=== PATIENT | female | born 1935 | race Caucasian/White ===

== ENCOUNTER 2020-09-10 20:17 | Emergency (ER) | payer OTHER ==
--- OUTSIDE RECORDS SUMMARY | 2020-09-10 20:19 | XMS REPORT | Clinical Summary ---
:1935 Author Organization [facility] Address [address] [place] [address] Care Team Providers Name Role Phone MD Remigio Primary Care Provider Allergies Active Allergy Reactions Severity Noted Date Comments Ciprofloxacin High 04/03/2016 CIPROFLOXACIN: uncontrollable diarrhea and vo miting. pain on left side of ch est. tremors. - Converted from [facility] Egg 10/06/2019 Esomeprazole Magnesium Low 08/30/2010 ESOME PRAZOLE MAGNESIUM: rash - Converted from [facility] Fluconazole 10/21/2017 Diarrhea, sever e headaches Metoclopramide Hcl High 02/19/2016 METOCLOPR AMIDE HCL: severe weakness; vomit ing and diarrhea - Converted fro m [facility] Tramadol Hcl Low 06/27/2009 TRAMADOL HCL: S ALTON EFFECTS PER PATIENT - Conve rted from [facility] Medications Medication Sig Dispensed Refills Start Date End Date Status pantoprazole Take 40 mg by 0 Act derek (PROTONIX) 40 MG mouth daily. tablet lansoprazole Take 30 mg by 1 09/18/2019 Ac tive (PREVACID) 30 MG mouth 2 (two) capsule times daily. sertraline (ZOLOFT) 50 Take 50 mg by 2 09/18/2019 Active MG tablet mouth daily. donepezil (ARICEPT) 5 Take 5 mg by 3 09/18/2019 Active MG tablet mouth daily. nitrofurantoin, Take 1 capsule 14 capsule 0 10/06/2019 020 macrocrystal-monohydra (100 mg total) te, (MACROBID) 100 MG by mouth 2 capsule (two) times daily for 7 days. phenazopyridine Take 1 tablet 4 tablet 0 10/06/2019 0 (PYRIDIUM) 200 MG (200 mg total) tablet by mouth 2 (two) times daily for 2 days. phenazopyridine Take 1 tablet 9 tablet 0 10/20/2019 0 (PYRIDIUM) 200 MG (200 mg total) tablet by mouth 3 (three) times daily for 3 days. Active Problems No known active problems Encounters Date Type Specialty Care Team Description 10/20/2019 Emergency Emergency Medicine Zohaib Dozier, Dysuria (Primary Dx) 10/06/2019 Emergency Emergency Medicine Sung Ramirez MD Dysuria (Primary Dx) after 09/10/2019 Social History Tobacco Use Types Packs/Day Years Used Date Former Smoker Smokeless Tobacco: Never Used Alcohol Use Drinks/Week oz/Week Comments No Alcohol Habits Answer Date Recorded How often do you have a drink containing alcohol? Never 10/06/2019 How many drinks containing alcohol do you have on a typical Not asked day when you are drinking? How often do you have six or more drinks on one occasion? No t asked Sex Assigned at Date Recorded Not on file Last Filed Vital Signs Vital Sign Reading Time Taken Comments Blood Pressure 146/64 10/20/2019 4:35 PM EMPLOYMENT COORDINATOR Pulse 73 10/20/2019 4:35 PM EMPLOYMENT COORDINATOR Temperature 36.7 C (98.1 F) 10/20/2019 4:35 PM EMPLOYMENT COORDINATOR Respiratory Rate 18 10/20/2019 3:57 PM EMPLOYMENT COORDINATOR Oxygen Saturation 96% 10/20/2019 4:35 PM EMPLOYMENT COORDINATOR Inhaled Oxygen Concentration - - Weight 54.4 kg (120 lb) 10/20/2019 3:57 PM EMPLOYMENT COORDINATOR Height 165.1 cm (5' 5") 10/20/2019 3:57 PM EMPLOYMENT COORDINATOR Body Mass Index 19.97 10/20/2019 3:57 PM EMPLOYMENT COORDINATOR Plan of Treatment Health Maintenance Due Date Last Done Comments MEDICARE ANNUAL WELLNESS (YEAR 2 or 06/16/2003 FIRST YEAR if no IPPE) INFLUENZA VACCINE (#1) 2020 07/16/2017, 06/16/2015, 06/24/2014 PNEUMOCOCCAL 65+ YRS Completed 10/08/2017, 03/20/2006 Procedures Procedure Name Priority Date/Time Associated Comments Diagnosis URINALYSIS - Routine 10/20/2019 4:03 PM [facility] EMPLOYMENT COORDINATOR URINE CULTURE Routine 10/06/2019 3:41 PM Results for this EMPLOYMENT COORDINATOR procedure are i n the results section. URINALYSIS - Routine 10/06/2019 3:10 PM [facility] EMPLOYMENT COORDINATOR after 09/10/2019 Results URINALYSIS - [facility] (10/20/2019 4:03 PM EMPLOYMENT COORDINATOR)Only the most recent of2 resultswithin the time period is included. Specimen Urine Narrative Performed At This result has an attachment that is no t available. Performing Organization Address City/[facility]/Zipcode Phone Number [facility] [address] [place] [address] HOSPITAL Urine culture (10/06/2019 3:41 PM EMPLOYMENT COORDINATOR) Pathologist Sig nature Result 70-79,000 col/mL skin [facility] Y anukr Specimen Urine - Urine (substance) Performing Organization Address City/[facility]/Zipcode Phone Number [facility] [address] [place], [place] [address] after 09/10/2019 Advance Directives For more information, please contact: [phone] Type Date Recorded Patient Sessions Clerk Explanati on Advance Directives 10/06/2019 12:00 AM 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
--- OUTSIDE RECORDS SUMMARY | 2020-09-10 20:19 | XMS REPORT | Clinical Summary ---
:1935 Author Organization [facility] Address [address] [place] [address] Care Team Providers Name Role Phone Rich Flood MD Primary Care Provider Allergies Active Allergy Reactions Severity Noted Date Comments Ciprofloxacin Unknown Reaction High 04/03/2016 CIPROFLOXA DELGADO: uncontrollable diarrhea and vomiting. p ain on left side of ch est. tremors. - Conv erted from [facility] CIPROFLOXACIN: uncontrollable diarrhea and vomiting. p ain on left side of ch est. tremors. - Conv erted from [facility] Egg Unknown Reaction 04/19/2018 Nutritional Other (See 10/04/2019 Intolerance to Eggs Supplement-Fiber Comments) Esomeprazole Magnesium Unknown Reaction Low 08/30/2010 E SOMEPRAZOLE MAGNESIUM: rash - Converte d from [facility] ESOMEPRAZOLE MA GNESIUM: rash - Converte d from [facility] Fluconazole Unknown Reaction 10/21/2017 Diarrhea, s evere headaches Diarrhea, sever e headaches Hydrocodone Other (See 10/04/2019 Drunk feeling Comments) Metoclopramide Hcl Unknown Reaction High 02/19/2016 METOC LOPRAMIDE HCL: severe weakness ; vomiting and di arrhea - Converted from [facility] METOCLOPRAMIDE HCL: severe weakness ; vomiting and di arrhea - Converted from [facility] Other Unknown Reaction High 03/20/2006 NUTRITIONAL SUPPLEMENTS: GI problems - Conv erted from [facility] Tramadol Hcl Unknown Reaction Low 06/27/2009 TRAMADOL HC L: SIDE EFFECTS PER PAT IENT - Converted from [facility] TRAMADOL HCL: S ALTON EFFECTS PER PAT IENT - Converted from [facility] Medications Medication Sig Dispensed Refills Start Date End Date Status lansoprazole daily. 0 09/18/2019 Active (PREVACID) 30 MG capsule sertraline (ZOLOFT) daily. 0 09/18/2019 Active 50 MG tablet donepezil (ARICEPT) 5 daily. 0 09/18/2019 Active MG tablet phenazopyridine TAKE 1 0 10/20/2019 Act derek (PYRIDIUM) 200 MG TABLET BY tablet MOUTH 3 TIMES DAILY FOR 3 DAYS. pantoprazole Take 40 mg 0 11/03/2019 Disco ntinued (PROTONIX) 40 MG EC by mouth. tablet Active Problems Problem Noted Date Dementia with behavioral disturbance 10/04/2019 Encounters Date Type Specialty Care Team Description 11/24/2019 Telephone Neurology Sea Cash MD 11/03/2019 Office Visit Neurology Sea Cash Dement ia with behavioral MD disturbance, unspecified Michelle Butler PA dementia type (HCC) (Primary Dx) 11/03/2019 Telephone Neurology Sea Cash MD 10/27/2019 Telephone Neurology Sea Cash MD 10/25/2019 Office Visit Neurology Sea Cash Dement ia with behavioral MD disturbance, un specified dementia type ( HCC) (Primary Dx) 10/18/2019 Telephone Neurology Jamilah Olmedo 10/04/2019 Office Visit Neurology Sea Cash Dement ia with behavioral disturbance, unspecified dementia type (HCC) (Primary Dx); MD Conrad north ; Disorder of iro n metabolism, unspecified ; Atherosclerotic heart disease of [place] coronary artery without angina pectoris ; Abnormal result s of thyroid function studies ; Other specified disorders of thyroid ; Mild protein-ca dasia malnutrition (HCC) 09/14/2019 Telephone Neurology Sea Cash MD after 09/10/2019 Medical History Medical History Date Comments Memory loss Arthritis Stroke (HCC) TIA (transient ischemic attack) Family History Medical History Relation Name Comments No Known Problems Father No Known Problems Mother Relation Name Status Comments Father Mother Social History Tobacco Use Types Packs/Day Years Used Date Former Smoker Smokeless Tobacco: Never Used Alcohol Use Drinks/Week oz/Week Comments Never Alcohol Habits Answer Date Recorded How often do you have a drink containing alcohol? Never 10/04/2019 How many drinks containing alcohol do you have on a typical Not asked day when you are drinking? How often do you have six or more drinks on one occasion? No t asked Sex Assigned at Date Recorded Not on file Last Filed Vital Signs Vital Sign Reading Time Taken Comments Blood Pressure 124/60 11/03/2019 2:27 PM LICENSED PRACTICAL NURSE Pulse 71 11/03/2019 2:27 PM LICENSED PRACTICAL NURSE Temperature - - Respiratory Rate - - Oxygen Saturation - - Inhaled Oxygen Concentration - - Weight 58.5 kg (129 lb) 11/03/2019 2:27 PM LICENSED PRACTICAL NURSE Height 160 cm (5' 3") 11/03/2019 2:27 PM LICENSED PRACTICAL NURSE Body Mass Index 22.85 11/03/2019 2:27 PM LICENSED PRACTICAL NURSE Plan of Treatment Health Maintenance Due Date Last Done Comments COVID-19 VACCINE (#1) 1951 SHINGLES VACCINES (#1) 1987 INFLUENZA VACCINE 04/15/2020 07/23/2013, 06/03/2012, 2010 65+ PNEUMOCOCCAL VACCINE Completed 10/08/2017, 03/20/2006 Results Not on fileafter 09/10/2019 Insurance Payer Benefit Plan / Subscriber ID Effective Dates Phone Addre ss Type Group MEDICARE MEDICARE PART A [id number] 2002-Present [place] Medicare [place] B Advance Directives For more information, please contact: [phone] Type Date Recorded 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
--- OUTSIDE RECORDS SUMMARY | 2020-09-10 20:22 | XMS REPORT | Continuity of Care Document ---
:1935 Author Organization [facility] t Address [address] [place] [address] Care Team Providers Name Role Phone Rich Flood MD Primary Care Physician Sea Cash MD Attending Clinician Carrie KUMAR Attending Clinician Robin Dozier MD Attending Clinician Honorio Attending Clinician Unavailable KRISTIAN GA Attending Clinician Unavailable Kristian Ga MD Attending Clinician Payers Payer Name Policy Type Policy Effective Date Expiration Date Sour ce Number MEDICAREMEDICARE PART [id number] Candido Stevens AND 00:00:00 Taoist DybkauotIY9980/09/2001 [place] [id number] ELIZABETH S t Liannapablo [id number] 2001 00:00:00 - M edical -Present[facility]are Center Problems Condition Condition Condition Status Onset Resolution Last Treating Co mments Source Name Details Category Date Date Treatment Clinician Date Dementia Dementia Disease Active [place] with 20 [facility] behavioral behavioral 00:00: st disturbanc disturbanc 00 e e Allergies, Adverse Reactions, Alerts Allergy Allergy Status Severity Reaction(s) Onset Inactive Treating Comm ents Source Name Type Date Date Clinician egg FA Active U [facility] 3-12 [place] 00:00: Healthc 00 are [place] Egg Propensi Active [facility] 10[facility]06 [facility] - adverse 00:00: Medical reaction 00 Center s Nutritio Propensi Active Other (See Intoleran [facility] ty to Comments) 1-20 ce to Methodi Suppleme adverse 00:00: Eggs st nt-Fiber reaction 00 s to drug Hydrocod Propensi Active Other (See Drunk [place] one ty to Comments) 1-20 feeling Method i adverse 00:00: st reaction 00 s to drug egg FA Active U 2018- [facility] 2-30 [place] 00:00: [facility] egg FA Active U 2018-0 [facility] 8[facility]11 [place] 00:00: [facility] hydrocod DA Active [place] 2019-0 [facility] 2-11 [place] 00:00: [facility] egg DA Active [place] 2018- [facility] 2[facility] [place] 00:00: [facility] egg FA Active [place] 2018-0 [facility] 2[facility] [place] 00:00: [facility] hydrocod DA Active [place] 2017-0 [facility] one 8-05 [place] 00:00: [facility] egg DA Active [place] 2017- [facility] 8-05 [place] 00:00: [facility] Egg Propensi Active Unknown [place] ty to Reaction 8-05 [facility]i adverse 00:00: st reaction 00 s to drug Fluconaz Propensi Active Unknown Diarrhea, [place] ty to Reaction 2-06 severe Methodi adverse 00:00: headaches st reaction 00 Diarrhea, s to severe drug headaches Fluconaz Propensi Active 2018- Diarrhea[facility] ty to 2-06 severe [facility] - adverse 00:00: headaches Medica l reaction 00 Center s Ciproflo Propensi Active Unknown CIPROFLOX [place] xacin ty to Reaction 7-20 ACIN: Methodi adverse 00:00: uncontrol st reaction 00 lable s to diarrhea drug and vomiting. pain on left side of chest. tremors. - Converted from Centricit yCIPROFLO XACIN: uncontrol lable diarrhea and vomiting. pain on left side of chest. tremors. - Converted from Centricit y Ciproflo Propensi Active Severe 2015- CIPROFLOX [facility] xacin ty to 7-20 ACIN: [facility] - adverse 00:00: uncontrol Medica l reaction 00 lable Center s diarrhea and vomiting. pain on left side of chest. tremors. - Converted from Centricit y Metoclop Propensi Active Unknown METOCLOPR [place] ramide ty to Reaction 6-06 AMIDE Methodi Hcl adverse 00:00: HCL: st reaction 00 severe s to weakness; drug vomiting and diarrhea - Converted from Centricit yMETOCLOP RAMIDE HCL: severe weakness; vomiting and diarrhea - Converted from Centricit y Metoclop Propensi Active Severe 2015- METOCLOPR [facility] ramide ty to 6-06 AMIDE [facility] - Hcl adverse 00:00: HCL: Medical reaction 00 severe Center s weakness; vomiting and diarrhea - Converted from Centricit y Esomepra Propensi Active Unknown 2009-09 ESOMEPRAZ [place] z[place] ty to Reaction 2-16 OLE Methodi Magnesiu adverse 00:00: MAGNESIUM st m reaction 00 : rash - s to Converted drug from Centricit yESOMEPRA ZOLE MAGNESIUM : rash - Converted from Centricit y Esomepra Propensi Active Mild 2009-[address] zole ty to 2-16 OLE [facility] - Magnesiu adverse 00:00: MAGNESIUM Medi betty m reaction 00 : rash - Center s Converted from Centricit y Tramadol Propensi Active Unknown 2008-09 TRAMADOL [facility] Hcl ty to Reaction 0-13 HCL: SIDE Metho di adverse 00:00: EFFECTS st reaction 00 PER s to PATIENT - drug Converted from Centricit yTRAMADOL HCL: SIDE EFFECTS PER PATIENT - Converted from Centricit y Tramadol Propensi Active Mild 2008-[address] [facility] ty to 0-13 HCL: SIDE [facility] - adverse 00:00: EFFECTS Medical reaction 00 PER Center s PATIENT - Converted from Centricit y Other Propensi Active Unknown 2005- NUTRITION [place] to Reaction 7-06 [place] Methodi adverse 00:00: SUPPLEMEN st reaction 00 TS: GI s problems - Converted from Centricit y Family History Family Member Diagnosis Comments Start Date Stop Date Source Natural father No Known Problems Rodri ston Taoist Natural mother No Known Problems Rodri ston Taoist Social History Social Habit Start Date Stop Date Quantity Comments Source History SDOH [facility] - [facility] Std Dr[facility] History SDOH [facility] - Alcohol Binge Medical Wilfredo ter Sex Assigned At [facility] Tobacco use and 2019-10-20 2019-10-20 Never used [facility] - exposure 00:00:00 00:00:00 [facility] Alcohol intake 2019-10-20 2019-10-[address]00 non-drinker of Medical Ce nter alcohol (finding) History SDOH 2019-10-06 2019-10-[address] [facility] - Alcohol Frequency 00:00:00 00:00:00 [facility] Smoking Status Start Date Stop Date Source Former smoker 2019-10-20 00:00:00 2019-10-20 00:00:00 [facility] Medications Ordered Filled Start Stop Current Ordering Indication Dosage Frequency Signature Comments Components Source Medication Medication Date Date Medication? Clinician (SIG) Name Name pantoprazol 2020- No 40mg Take 40 mg [place] e 11-03 by mouth. [facility]i (PROTONIX) 15:03: 00:00 st 40 MG EC 18 :00 tablet phenazopyri Yes TAKE 1 [place] 2-05 TABLET BY Methodi (PYRIDIUM) 00:00: MOUTH 3 st 200 MG 00 TIMES tablet DAILY FOR 3 DAYS. phenazopyri 2019- No 200mg [id number] Take [address] dine 2-05 -08 [id number] tablet [facility] - (PYRIDIUM) 00:00: 23:59 3D (200 mg Med ical 200 MG 00 :00 total) by Center tablet mouth 3 (three) times daily for 3 days. pantoprazol 2020-0 Yes 40mg QD Take [address] e -22 by mouth [facility] - (PROTONIX) 14:26: daily. Medic al 40 MG 59 Center tablet nitrofurant 2020-0 2020- No 100mg Q.5D Take [address] oin, 10-06 capsule [facility] - macrocrysta 00:00: 23:59 (100 mg Me dical l-monohydra 00 :00 total) by [facility] ter te, mouth 2 (MACROBID) (two) 100 MG times capsule daily for 7 days. phenazopyri 2020-0 2020- No 200mg Q.5D Take [address] dine 10-06 tablet [facility] - (PYRIDIUM) 00:00: 23:59 (200 mg Med ical 200 MG 00 :00 total) by Center tablet mouth 2 (two) times daily for 2 days. lansoprazol 2020-0 Yes QD daily. [place] 1-04 [facility] (PREVACID) 00:00: st 30 MG 00 capsule sertraline 2020-0 Yes QD daily. [place] (ZOLOFT) 50 1-04 Methodi MG tablet 00:00: st 00 donepezil 2020-0 Yes QD daily. [place] n (ARICEPT) 5 1-04 Methodi MG tablet 00:00: st 00 lansoprazol 2020-0 Yes 30mg Q.5D Take [address] e 1-04 by mouth 2 [facility] - (PREVACID) 00:00: (two) Medica l 30 MG 00 times Center capsule daily. sertraline 2020-0 Yes 50mg QD Take [address] (ZOLOFT) 50 1-04 by mouth Luke s - MG tablet 00:00: daily. Medica l 00 Center donepezil 2020-0 Yes 5mg QD Take [address] (ARICEPT) 5 1-04 by mouth Luke s - MG tablet 00:00: daily. Medica l 00 Center Vital Signs Vital Name Observation Time Observation Value Comments Source Systolic blood 2019-11-03 14:27:00 124 mm[Hg] [place] pressure Diastolic blood 2019-11-03 14:27:00 60 mm[Hg] [place] [facility] pressure Heart rate 2019-11-03 14:27:00 71 /min [place] [facility] Body height 2019-11-03 14:27:00 160 cm [place] [facility] Body weight 2019-11-03 14:27:00 58.514 kg [place] [facility] BMI 2019-11-03 14:27:00 22.85 kg/m2 [place] [facility] Systolic blood 2019-10-20 16:35:00 146 mm[Hg] [facility] Diastolic blood 2019-10-20 16:35:00 64 mm[Hg] [facility] Heart rate 2019-10-20 16:35:00 73 /min [facility] Body temperature 2019-10-20 16:35:00 36.72 [facility] Oxygen saturation in 2019-10-20 16:35:00 96 /min [facility] Arterial blood by Medical Ce nter Pulse oximetry Respiratory rate 2019-10-20 15:57:00 18 /min [facility] Body height 2019-10-20 15:57:00 165.1 cm [facility] Body weight 2019-10-20 15:57:00 54.432 kg [facility] BMI 2019-10-20 15:57:00 19.97 kg/m2 [facility] Procedures Procedure Date / Time Performed Performing Clinician [facility] e URINALYSIS [facility] 2019-10-20 16:03:00 Zohaib Dozier [facility] URINE CULTURE 2019-10-06 15:41:00 Sung Ga [facility] URINALYSIS [facility] 2019-10-06 15:10:00 Sung Ga I [facility] Plan of Care Planned Activity Planned Date Details Comments Source Future Scheduled 2020-05-[address] [facility] Test 00:00:00 (#1) [code = [facility] INFLUENZA VACCINE (#1)] Future Scheduled 2020-04-15 INFLUENZA VACCINE [place] [facility] Test 00:00:00 [code = INFLUENZA VACCINE] Future Scheduled 2003-06-[address] [facility] - Test 00:00:00 WELLNESS (YEAR 2 or Medical Center FIRST YEAR if no IPPE) [code = MEDICARE ANNUAL WELLNESS (YEAR 2 or FIRST YEAR if no IPPE)] Future Scheduled 1987 SHINGLES VACCINES [place] [facility] Test 00:00:00 (#1) [code = SHINGLES VACCINES (#1)] Future Scheduled 1953 COVID-19 VACCINE [place] [facility] Test 00:00:00 (#1) [code = COVID-19 VACCINE (#1)] Results Test Description Test Time Test Comments Results Result Comments Source COMPREHENSIVE METABOLIC PANEL 2019-12-06 05:17:00 Test Item Value Reference Range Interpretation Comme nts SODIUM (test code = NA) 141.0 mmol/L 133-144 N POTASSIUM (test code = K) 3.7 mmol/L 3.5-5.1 N CHLORIDE (test code = CL) 111 mmol/L 95-105 H CARBON DIOXIDE (test code 26 mmol/L 21-32 N = CO2) ANION GAP (test code = 4.0 GAP calc 4.0-15.0 N GAP) GLUCOSE (test code = GLU) 96 MG/DL 70-110 N BLOOD UREA NITROGEN (test 16 MG/DL 7-18 N code = BUN) GLOMERULAR FILTRATION RATE 73 estGFR >60 T he estimated glomerular (test code = GFR) filtration rate is computed usingp atient race, age, sex, and serum creatinine. If any of theneeded data elements are missing the Laboratory can notcompute an estimation of t he glomerular filt ration rate.The GFR va lue units = ml/min/1.73 met er squared. EstimatedGFR v alues above 60 should be in terpreted as >60, not ane xact number.--- DRUG DOSAGE ALERT --- Drug dosage adjustments uti lize different calculationpara meters. CREATININE (test code = 0.76 MG/DL 0.55-1.30 N Resu lts may be depressed CREAT) if patient is takingN-Acetylc ysteine (NAC) and Metam izole (Dipyrone). TOTAL PROTEIN (test code = 6.4 G/DL 6.4-8.2 N PROT) ALBUMIN (test code = ALB) 3.3 G/DL 3.4-5.0 L ALBUMIN/GLOBULIN RATIO 1.1 RATIO 1.2-2.2 L (test code = A/G) CALCIUM (test code = CA) 7.9 MG/DL 8.5-10.1 L BILIRUBIN TOTAL (test code 0.19 MG/DL 0.00-1.00 N = BILT) BILIRUBIN DIRECT (test < 0.10 MG/DL 0.00-0.30 N code = BILD) BILIRUBIN INDIRECT (test 0.19 MG/DL 0.2-1.3 L code = BILIND) SGOT/AST (test code = AST) 22 Unit/L 15-37 N SGPT/ALT (test code = ALT) 14 Unit/L 12-78 N ALKALINE PHOSPHATASE TOTAL 106 Unit/L 45-117 N (test code = ALKP) INDEX HEMOLYSIS (test code 1 NORMAL <10 MG 1 NORMAL = HEMINDEX) Index/DL INDEX ICTERIC (test code = 1 NORMAL <2 MG 1 NORMAL ICTINDEX) Index/DL INDEX LIPEMIA (test code = 1 NORMAL <50 MG 1 NORMAL LIPINDEX) Index/DL [id number] 05:17:00 Test Item Value Reference Range Interpretation Comments MAGNESIUM (test code = MAG) 2.2 MG/DL 1.6-2.6 N COMPREHENSIVE METABOLIC [id number] 05:15:00 Test Item Value Reference Range Interpretation Comments SODIUM (test code = 141.0 mmol/L 133-144 N NA) POTASSIUM (test code 3.7 mmol/L 3.5-5.1 N = K) CHLORIDE (test code 111 mmol/L 95-105 H = CL) CARBON DIOXIDE (test 26 mmol/L 21-32 N code = CO2) ANION GAP (test code 4.0 GAP calc 4.0-15.0 N = GAP) GLUCOSE (test code = 96 MG/DL 70-110 N GLU) BLOOD UREA NITROGEN 16 MG/DL 7-18 N (test code = BUN) GLOMERULAR 73 estGFR >60 The estimated FILTRATION RATE glomerular (test code = GFR) filtration rate is computed usingpatient ra ce, age, sex, and s vanesa creatinine. If any of theneeded da ta elements are mi ssing the Laboratory can notcompute an estimation of t he glomerular filtration rate .The GFR value units = ml/min/1.73 met er squared. EstimatedGFR va lues above 60 should be interpreted as >60, not anexact number.--- DRUG DOSAGE ALERT -- - Drug dosage adjustments uti lize different calculationpara meter s. CREATININE (test 0.76 MG/DL 0.55-1.30 N Results may be code = CREAT) depressed if p atient is takingN-Acetylc ystei ne (NAC) and Metamizole (Dipyrone). TOTAL PROTEIN (test G/DL 6.4-8.2 code = PROT) ALBUMIN (test code = 3.3 G/DL 3.4-5.0 L ALB) ALBUMIN/GLOBULIN RATIO 1.2-2.2 RATIO (test code = A/G) CALCIUM (test code = 7.9 MG/DL 8.5-10.1 L CA) BILIRUBIN TOTAL MG/DL 0.00-1.00 (test code = BILT) BILIRUBIN DIRECT < 0.10 MG/DL 0.00-0.30 N (test code = BILD) BILIRUBIN INDIRECT MG/DL 0.2-1.3 (test code = BILIND) SGOT/AST (test code 22 Unit/L 15-37 N = AST) SGPT/ALT (test code 14 Unit/L 12-78 N = ALT) ALKALINE PHOSPHATASE Unit/L 45-117 TOTAL (test code = ALKP) INDEX HEMOLYSIS 1 NORMAL <10 1 NORMAL (test code = MG Index/DL HEMINDEX) INDEX ICTERIC (test 1 NORMAL <2 MG 1 NORMAL code = ICTINDEX) Index/DL INDEX LIPEMIA (test 1 NORMAL <50 1 NORMAL code = LIPINDEX) MG Index/DL [id number] 05:15:00 Test Item Value Reference Range Interpretation Comments MAGNESIUM (test code = MAG) 2.2 MG/DL 1.6-2.6 N CBC W/AUTO [id number] 05:07:00 Test Item Value Reference Range Interpretation Comments WHITE BLOOD CELL (test code = 4.5 K/mm3 4.1-12.1 N WBC) RED BLOOD CELL (test code = RBC) 4.20 M/mm3 3.8-5.5 N HEMOGLOBIN (test code = HGB) 12.0 G/DL 10.6-15.8 N HEMATOCRIT (test code = HCT) 38.5 % 31.8-47.4 N MEAN CELL VOLUME (test code = 91.7 fL 80.1-101.1 N MCV) MEAN CELL HGB (test code = MCH) 28.6 pg 25.3-35.3 N MEAN CELL HGB CONCETRATION (test 31.2 G/DL 32.7-35.1 L code = MCHC) RED CELL DISTRIBUTION WIDTH 13.9 % 12.2-16.4 N (test code = RDW) RED CELL DISTRIBUTION WIDTH 47.0 fL 36.4-46.3 H (test code = RDW-SD) PLATELET COUNT (test code = PLT) 226 K/mm3 155-337 N MEAN PLATELET VOLUME (test code 9.9 fL 6.8-11.2 N = MPV) GRANULOCYTE % (test code = GR%) 52.9 % 37.8-82.6 N IMMATURE GRANULOCYTE % (test 0.0 % 0.0-2.0 N code = IG%) LYMPHOCYTE % (test code = LY%) 33.0 % 14.1-45.4 N MONOCYTE % (test code = MO%) 7.5 % 2.5-11.7 N EOSINOPHIL % (test code = EO%) 5.5 % 0.0-6.2 N BASOPHIL % (test code = BA%) 1.1 % 0.0-2.1 N NUCLEATED RBC % (test code = 0.0 /100WBC% 0.0-1.0 N NRBC%) GRANULOCYTE # (test code = GR#) 2.40 k/mm3 2.0-13.7 N IMMATURE GRANULOCYTE # (test 0.00 K/mm3 0.00-0.03 N code = IG#) LYMPHOCYTE # (test code = LY#) 1.50 K/mm3 0.6-3.8 N MONOCYTE # (test code = MO#) 0.34 K/mm3 0.11-0.59 N EOSINOPHIL # (test code = EO#) 0.25 K/mm3 0.0-0.4 N BASOPHIL # (test code = BA#) 0.05 K/mm3 0.0-0.1 N NUCLEATED RBC # (test code = 0.00 K/mm3 0.0-0.05 N NRBC#) [id number] 09:33:00 Test Item Value Reference Range Interpretation Comments TROPONIN-I 0.851 NG/ML 0.000-0.045 HH Critical values after the (test code = first occurrenc e are excluded TROPI) fromcall docume ntation requirements fo r this analyte due to thepatie nt diagnosis or therapy prot ocols.An elevated tropon in value alone is not sufficie nt todiagnose a myocardial in farction. Rather, the pat ient'sclinical presentation (h istory, physical exam) and ECGshould be used in conj unction with troponin in the diagnostic evaluation of s uspected myocardial infa rction. Aserial samplin g protocol is recommended to facilitate theidentificati on of temporal changes in trop onin levelscharacter istic of [place]. [id number] 09:06:00 Test Item Value Reference Range Interpretation Comments POTASSIUM (test code = K) 3.5 mmol/L 3.5-5.1 BASIC METABOLIC [id number] 08:32:00 Test Item Value Reference Range Interpretation Comments SODIUM (test code = 137.0 mmol/L 133-144 N NA) POTASSIUM (test code 6.0 mmol/L 3.5-5.1 H = K) CHLORIDE (test code 106 mmol/L 95-105 H = CL) CARBON DIOXIDE (test 29 mmol/L 21-32 N code = CO2) ANION GAP (test code 2.0 GAP calc 4.0-15.0 L = GAP) GLUCOSE (test code = 145 MG/DL 70-110 H GLU) BLOOD UREA NITROGEN 15 MG/DL 7-18 N (test code = BUN) CREATININE (test 0.79 MG/DL 0.55-1.30 N Results may be code = CREAT) depressed if patient is takingN-Acetylc yste ine (NAC) and Metamizole (Dipyrone). CALCIUM (test code = 8.9 MG/DL 8.5-10.1 N CA) INDEX HEMOLYSIS 6 MOD 300-500 1 NORMAL A (test code = MG Index/DL HEMINDEX) INDEX ICTERIC (test 1 NORMAL <2 MG 1 NORMAL code = ICTINDEX) Index/DL INDEX LIPEMIA (test 1 NORMAL <50 MG 1 NORMAL code = LIPINDEX) Index/DL HEPATIC FUNCTION [id number] 08:32:00 Test Item Value Reference Range Interpretation Comments TOTAL PROTEIN (test code = PROT) 8.2 G/DL 6.4-8.2 N ALBUMIN (test code = ALB) 3.8 G/DL 3.4-5.0 N BILIRUBIN TOTAL (test code = 0.60 MG/DL 0.00-1.00 N BILT) BILIRUBIN DIRECT (test code = < 0.10 MG/DL 0.00-0.30 N BILD) BILIRUBIN INDIRECT (test code = 0.60 MG/DL 0.2-1.3 N BILIND) SGOT/AST (test code = AST) 77 Unit/L 15-37 H SGPT/ALT (test code = ALT) 23 Unit/L 12-78 N ALKALINE PHOSPHATASE TOTAL (test 118 Unit/L 45-117 H code = ALKP) THYROID STIMULATING [id number] 08:32:00 Test Item Value Reference Range Interpretation Comments THYROID STIMULATING HORMONE 2.210 mc IU/ML 0.340-4.820 N (test code = TSH) [id number] 08:32:00 Test Item Value Reference Range Interpretation Comments TROPONIN-I 0.943 NG/ML 0.000-0.045 HH ON 12/05/19 AT 0830, (test code = B.LAB.HLS CHRISTIANSON D TO DANIELLE TROPI) KAM . The rep ort was confirmed by re ad back protocols Y,N: . Critical values after t he first occurrence are excluded.An elevated tropon in value alone is not sufficie nt todiagnose a myocardial in farction. Rather, the pat ient'sclinical presentation (h istory, physical exam) and ECGshould be used in conj unction with troponin in the diagnostic evaluation of s uspected myocardial infa rction. Aserial samplin g protocol is recommended to facilitate theidentificati on of temporal changes in trop onin levelscharacter istic of [place]. [id number] 08:32:00 Test Item Value Reference Range Interpretation Comments ACETAMINOPHEN (test code = ACET) <2.0 mcG/ML 10.0-30.0 L [id number] 08:32:00 Test Item Value Reference Range Interpretation Comments ALCOHOL (test code = <3 MG/DL 0-10 N MEDICAL ALCOHOL RESULTS. ALC) SITE WAS PREPPE D WITH BETADINE. <10 MG/DL ARE CONSI DERED NEGATIVE. >400 MG/DL MAY BE FATAL.RESULTS F OR MEDICAL USE ONL Y. NOT TO BE USED FOR FOR ENSIC PURPOSES. [id number] 08:25:00 Test Item Value Reference Range Interpretation Comments SALICYLATE (test code < 1.7 MG/DL 2.8-20.0 THER L RESUL T <2.8 IS = TEODORA) CONSIDERED NEGA TIVE FOR SALICYLATE. CBC W/O [id number] 08:05:00 Test Item Value Reference Range Interpretation Comments WHITE BLOOD CELL (test code = WBC) 4.6 K/mm3 4.1-12.1 N RED BLOOD CELL (test code = RBC) 4.82 M/mm3 3.8-5.5 N HEMOGLOBIN (test code = HGB) 14.0 G/DL 10.6-15.8 N HEMATOCRIT (test code = HCT) 43.7 % 31.8-47.4 N MEAN CELL VOLUME (test code = MCV) 90.7 fL 80.1-101.1 N MEAN CELL HGB (test code = MCH) 29.0 pg 25.3-35.3 N MEAN CELL HGB CONCETRATION (test 32.0 G/DL 32.7-35.1 L code = MCHC) RED CELL DISTRIBUTION WIDTH (test 13.9 % 12.2-16.4 N code = RDW) PLATELET COUNT (test code = PLT) 284 K/mm3 155-337 N MEAN PLATELET VOLUME (test code = 10.5 fL 6.8-11.2 N MPV) EMERGENCY ROOM [id number] 07:00:00 Test Item Value Reference Range Interpretation Comments DIAGNOSIS (test code = SPECIMENS RCVED RECEIVED DIAG) SPECIMEN EMERGENCY ROOM [id number] 07:00:00 Test Item Value Reference Range Interpretation Comments DIAGNOSIS (test code = SPECIMENS RCVED RECEIVED DIAG) SPECIMEN EMERGENCY ROOM [id number] 06:59:00 Test Item Value Reference Range Interpretation Comments DIAGNOSIS (test code = SPECIMENS RCVED RECEIVED DIAG) SPECIMEN [id number] 17:03:00 Test Item Value Reference Range Interpretation Comments TROPONIN-I (test code = TROPI) 0.01 ng/mL 0.00-0.03 N URINALYSIS [id number] 16:00:00 Test Item Value Reference Range Interpretation Comments UA COLOR (test code = COLU) YELLOW YELLOW UA APPEARANCE (test code = CLOUDY CLEAR A APPU) UA GLUCOSE DIPSTICK (test code NEGATIVE MG/AL NEGATIVE = DGLUU) UA BILIRUBIN DIPSTICK (test NEGATIVE NEGATIVE code = BILU) UA KETONE DIPSTICK (test code NEGATIVE MG/DL NEGATIVE = KETU) UA SPECIFIC GRAVITY (test code 1.025 1.000-1.030 = SGU) UA BLOOD DIPSTICK (test code = NEGATIVE NEGATIVE RUBY) UA PH DIPSTICK (test code = 6.5 4.5-8.5 JORGE ALBERTO) UA PROTEIN DIPSTICK (test code NEGATIVE NEGATIVE = PROU) UA UROBILINOGEN DIPSTICK (test 0.2 EU/dL <=1.0 code = URO) UA NITRITE DIPSTICK (test code NEGATIVE NEGATIVE = LENARD) UA LEUKOCYTE ESTERASE DIPSTICK 3+ NEGATIVE (test code = LEUU) UA WBC (test code = WBCU) 10-20 /HPF 0-3 A UA RBC (test code = RBCU) 3-5 /HPF 0-3 A UA EPITHELIAL CELLS (test code FEW /LPF NONE-FEW = EPIU) UA BACTERIA (test code = BACU) FEW /HPF NEGATIVE DRUGS OF ABUSE SCREEN [id number] 15:54:00 Test Item Value Reference Range Interpretation Comments UR COCAINE (test code = COCAU) NEGATIVE NEGATIVE UR METHAMPHETAMINE (test code = NEGATIVE NEGATIVE METHAMPHU) UR CANABINOIDS (test code = CANU) NEGATIVE NEGATIVE UR AMPHETAMINE (test code = AMPHU) NEGATIVE NEGATIVE UR BARBITURATE (test code = BARBQLU) NEGATIVE NEGATIVE UR BENZODIAZEPINE (test code = NEGATIVE NEGATIVE BENZU) METHADONE (test code = METHDU) NEGATIVE NEGATIVE PROPOXYPHENE SCREEN (test code = NEGATIVE NEGATIVE PROPXSQ) UR OPIATES QUAL (test code = NEGATIVE NEGATIVE OPIAQLU) OXYCODONE (test code = OXYCOD) NEGATIVE NEGATIVE UR TRICYCLICS (test code = TRICYCU) NEGATIVE NEGATIVE UR PHENCYCLIDINE (PCP) (test code = NEGATIVE NEGATIVE PHENCU) UR BUPRENORPHINE QUAL (test code = NEGATIVE NEAGTIVE BUPRESCRT) URINALYSIS [id number] 15:44:00 Test Item Value Reference Range Interpretation Comments UA COLOR (test code = COLU) YELLOW YELLOW UA APPEARANCE (test code = CLOUDY CLEAR A APPU) UA GLUCOSE DIPSTICK (test code NEGATIVE MG/AL NEGATIVE = DGLUU) UA BILIRUBIN DIPSTICK (test NEGATIVE NEGATIVE code = BILU) UA KETONE DIPSTICK (test code NEGATIVE MG/DL NEGATIVE = KETU) UA SPECIFIC GRAVITY (test code 1.025 1.000-1.030 = SGU) UA BLOOD DIPSTICK (test code = NEGATIVE NEGATIVE RUBY) UA PH DIPSTICK (test code = 6.5 4.5-8.5 JORGE ALBERTO) UA PROTEIN DIPSTICK (test code NEGATIVE NEGATIVE = PROU) UA UROBILINOGEN DIPSTICK (test 0.2 EU/dL <=1.0 code = URO) UA NITRITE DIPSTICK (test code NEGATIVE NEGATIVE = LENARD) UA LEUKOCYTE ESTERASE DIPSTICK 3+ NEGATIVE (test code = LEUU) UA WBC (test code = WBCU) /HPF 0-3 UA RBC (test code = RBCU) /HPF 0-3 UA EPITHELIAL CELLS (test code /LPF NONE-FEW = EPIU) UA BACTERIA (test code = BACU) /HPF NEGATIVE CBC W/AUTO [id number] 14:33:00 Test Item Value Reference Range Interpretation Comments WHITE BLOOD CELL (test 4.40 K/mm3 5.0-12.0 L code = WBC) RED BLOOD CELL (test 4.20 M/mm3 4.20-5.40 N code = RBC) HEMOGLOBIN (test code = 12.2 G/DL 12.0-16.0 N HGB) HEMATOCRIT (test code = 37.5 % 36.0-46.0 N HCT) MEAN CELL VOLUME (test 89 fL 81-99 N code = MCV) MEAN CELL HGB (test code 29.0 PGM 27-31 N = MCH) MEAN CELL HGB 32.5 G/DL 33-37 L CONCENTRATION (test code = MCHC) RED CELL DISTRIBUTION 13.8 % 11.6-16.2 N WIDTH (test code = RDW) PLATELET COUNT (test 42 K/mm3 130-400 L MANUAL PLATELET code = PLT) ESTIMATE 30-50K /MM3 MEAN PLATELET VOLUME 11.4 fl 7.4-10.4 H (test code = MPV) NEUTROPHIL % (test code 60.0 % 43-65 N = NT%) IMMATURE GRANULOCYTE % 0.5 % 0.0-2.0 N (test code = IG%) LYMPHOCYTE % (test code 29.5 % 20.5-45.5 N = LY%) MONOCYTE % (test code = 5.7 % 5.5-11.7 N MO%) EOSINOPHIL % (test code 3.4 % 0.9-2.9 H = EO%) BASOPHIL % (test code = 0.9 % 0.2-1.0 N BA%) NUCLEATED RBC % (test 0.0 % 0-1.0 N code = NRBC%) NEUTROPHIL # (test code 2.64 K/mm3 2.2-4.8 N = NT#) LYMPHOCYTE # (test code 1.30 K/mm3 1.3-2.9 N = LY#) MONOCYTE # (test code = 0.25 K/mm3 0.3-0.8 L MO#) EOSINOPHIL # (test code 0.15 K/MM3 0.0-0.2 N = EO#) BASOPHIL # (test code = 0.04 K/mm3 0.0-0.1 N BA#) BASIC METABOLIC [id number] 14:15:00 Test Item Value Reference Range Interpretation Comments SODIUM (test code 140 mmol/L 136-145 N = NA) POTASSIUM (test 3.8 MMOL/L 3.6-5.2 N code = K) CHLORIDE (test 104 MMOL/L 98-110 N code = CL) CARBON DIOXIDE 29 mEq/L 24-32 N (test code = CO2) GLUCOSE (test code 119 mg/dL 70-110 H = GLU) BLOOD UREA 19 mg/dL 7-18 H NITROGEN (test code = BUN) GLOMERULAR >=60 max >60 The estimated FILTRATION RATE estimate glomerular (test code = GFR) filtration rate is computed usingpatient ra ce, age (>18), sex, and serum creatinin e. If anyof the neede d data elements a re missing the Laboratory eddie ot compute an estimation of t he glomerular filtration rate . CREATININE (test 0.70 mg/dL 0.60-1.30 N code = CREAT) CALCIUM (test code 9.0 mg/dL 8.6-10.4 N = CA) LIVER FUNCTION [id number] 14:15:00 Test Item Value Reference Range Interpretation Comments TOTAL PROTEIN (test 6.6 g/dL 6.0-8.3 N code = PROT) ALBUMIN (test code = 3.9 g/dL 3.2-5.5 N ALB) BILIRUBIN TOTAL 0.6 mg/dL 0.2-1.0 N X-niveqb-g-b enzoquinone (test code = BILT) imine (NA PQI), a metabolite ofacetaminophen (paracetamol), may generate errone ously lowresults in s amples for patients th at have taken toxic dos esof acetaminophen (paracetamol). BILIRUBIN DIRECT 0.2 mg/dL 0.0-0.2 N N-acetyl-p- benzoquinone (test code = BILD) imine (NA PQI), a metabolite ofacetaminophen (paracetamol), may generate errone ously lowresults in s amples for patients th at have taken toxic dos esof acetaminophen (paracetamol). BILIRUBIN INDIRECT 0.4 mg/dL (test code = BILIND) SGOT/AST (test code 20 UNITS/L 10-42 N = AST) SGPT/ALT (test code 11 UNITS/L 10-40 N = ALT) ALKALINE PHOSPHATASE 86 UNITS/L 34-104 N (test code = ALKP) THYROID STIMULATING [id number] 14:15:00 Test Item Value Reference Range Interpretation Comments THYROID STIMULATING HORMONE (test 2.28 mIU/mL 0.38-5.60 N code = TSH) [id number] 14:15:00 Test Item Value Reference Range Interpretation Comments ACETAMINOPHEN (test code = ACET) < 10.0 ug/mL 10.0-25.0 L [id number] 14:15:00 Test Item Value Reference Range Interpretation Comments SALICYLATE (test code = TEODORA) < 4.0 mg/dL 0.0-30.0 N [id number] 14:15:00 Test Item Value Reference Range Interpretation Comments ALCOHOL (test code = < 5.0 mg/dl 0.0-80.0 N ALC) ~~~~~~~~~~~~~~~ ~~~~~~~ ~~~~~~~~~~~~~~~ ~~~~~~~ ~~~~~~ RESU LTS ARE TO BE USED FOR MEDICAL PURPOSES ONLY.F OR LEGAL PURPOSES THE SPECIMEN MUST B E COLLECTED BY A CHAINOF CUSTODY. LEGAL TESTING IS NOT PERFORME D BY THIS FACILITY. ~~~~~~~~~~~~~~~ ~~~~~~~ ~~~~~~~~~~~~~~~ ~~~~~~~ ~~~~~~ BASIC METABOLIC [id number] 13:57:00 Test Item Value Reference Range Interpretation Comments SODIUM (test code 140 mmol/L 136-145 N = NA) POTASSIUM (test 3.8 MMOL/L 3.6-5.2 N code = K) CHLORIDE (test 104 MMOL/L 98-110 N code = CL) CARBON DIOXIDE 29 mEq/L 24-32 N (test code = CO2) GLUCOSE (test code 119 mg/dL 70-110 H = GLU) BLOOD UREA 19 mg/dL 7-18 H NITROGEN (test code = BUN) GLOMERULAR >=60 max >60 The estimated FILTRATION RATE estimate glomerular (test code = GFR) filtration rate is computed usingpatient ra ce, age (>18), sex, and serum creatinin e. If anyof the neede d data elements a re missing the Laboratory eddie ot compute an estimation of t he glomerular filtration rate . CREATININE (test 0.70 mg/dL 0.60-1.30 N code = CREAT) CALCIUM (test code 9.0 mg/dL 8.6-10.4 N = CA) LIVER FUNCTION [id number] 13:57:00 Test Item Value Reference Range Interpretation Comments TOTAL PROTEIN (test 6.6 g/dL 6.0-8.3 N code = PROT) ALBUMIN (test code = 3.9 g/dL 3.2-5.5 N ALB) BILIRUBIN TOTAL 0.6 mg/dL 0.2-1.0 N H-glolsm-t-b enzoquinone (test code = BILT) imine (NA PQI), a metabolite ofacetaminophen (paracetamol), may generate errone ously lowresults in s amples for patients th at have taken toxic dos esof acetaminophen (paracetamol). BILIRUBIN DIRECT 0.2 mg/dL 0.0-0.2 N N-acetyl-p- benzoquinone (test code = BILD) imine (NA PQI), a metabolite ofacetaminophen (paracetamol), may generate errone ously lowresults in s amples for patients th at have taken toxic dos esof acetaminophen (paracetamol). BILIRUBIN INDIRECT 0.4 mg/dL (test code = BILIND) SGOT/AST (test code 20 UNITS/L 10-42 N = AST) SGPT/ALT (test code 11 UNITS/L 10-40 N = ALT) ALKALINE PHOSPHATASE 86 UNITS/L 34-104 N (test code = ALKP) THYROID STIMULATING [id number] 13:57:00 Test Item Value Reference Range Interpretation Comments THYROID STIMULATING HORMONE (test mIU/mL 0.38-5.60 code = TSH) [id number] 13:57:00 Test Item Value Reference Range Interpretation Comments ACETAMINOPHEN (test code = ACET) < 10.0 ug/mL 10.0-25.0 L [id number] 13:57:00 Test Item Value Reference Range Interpretation Comments SALICYLATE (test code = TEODORA) < 4.0 mg/dL 0.0-30.0 N [id number] 13:57:00 Test Item Value Reference Range Interpretation Comments ALCOHOL (test code = < 5.0 mg/dl 0.0-80.0 N ALC) ~~~~~~~~~~~~~~~ ~~~~~~~ ~~~~~~~~~~~~~~~ ~~~~~~~ ~~~~~~ RESU LTS ARE TO BE USED FOR MEDICAL PURPOSES ONLY.F OR LEGAL PURPOSES THE SPECIMEN MUST B E COLLECTED BY A CHAINOF CUSTODY. LEGAL TESTING IS NOT PERFORME D BY THIS FACILITY. ~~~~~~~~~~~~~~~ ~~~~~~~ ~~~~~~~~~~~~~~~ ~~~~~~~ ~~~~~~ - CT HEAD/BRAIN W/O [id number] 13:52:00Patient Name: CECE YEE Unit No: [id number] EXAMS: CPT: [id number] CT HEAD/BRAIN W/O CONT 28250 CT SCAN OF THE HEAD WITHOUT CONTRAST: HISTORY: Altered mental status, confusion COMPARISON: None TECHNIQUE: CT radiation dose optimization was achieved for this examination by the use of a CT protocol in accordance with ACR ([employer]) practice guidelines and adherence to center mgr's recommendations. Radiation exposure: CTDI vol 35.5 mGy, DLP 794 mGy-cm. FINDINGS: Prominence of the ventricular system and cortical sulci compatible with atrophy. No evidence of an intra-axial or extra-axial mass is seen and no shift of the midline structures is present. Encephal omalacia in the right parieto-occipital subcortical and deep white matter compatible with old ischemic infarct. No evidence of a subarachnoid or parenchymal hemorrhage or extra-axial fluidcollection is seen. Patchy mucosal thickening within the ethmoid sinuses and small air-fluid level within the right maxillary sinus. Trace fluid within the left maxillary sinus. 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 at 1352 Reported and signed by: Randy Palencia MD CC: GENERIC FOR [facility] EDDOC; Marcello Mcgovern MD Technologist: JET BETHEA CTDI: 35.5 DLP: 794 Trscr Dt/Tm: 11/25/2019 (7612) by:[email or web address] Orig Print D/T: S: 11/25/2019 (0450) BATCH NO: N/A Name: NAKIACECE [facility] [place] Phys: Marcello Burnett MD [address] [facility] : 1935 Age: 84 Sex: F [place] Loc: T.ERS Exam Date: 11/25/2019 Status: REG ER PH: FAX: PAGE 1 Signed Report- CT HEAD/BRAIN W/O [id number] 13:52:00Patient Name: CECE YEE Unit No: [id number] EXAMS: CPT: [id number] CT HEAD/BRAIN W/O CONT 71567 CT SCAN OF THE HEAD WITHOUT CONTRAST: HISTORY: Altered mental status, confusion COMPARISON: None TECHNIQUE: CT radiation dose optimization was achieved for this examination by the use of a CT protocol in accordance with ACR ([employer]) practice guidelines and adherence to center mgr's recommendations. Radiation exposure: CTDI vol 35.5 mGy, DLP 794 mGy-cm. FINDINGS: Prominence of the ventricular system and cortical sulci compatible with atrophy. No evidence of an intra-axial or extra-axial mass is seen and no shift of the midline structures is present. Encephal omalacia in the right parieto-occipital subcortical and deep white matter compatible with old ischemic infarct. No evidence of a subarachnoid or parenchymal hemorrhage or extra-axial fluidcollection is seen. Patchy mucosal thickening within the ethmoid sinuses and small air-fluid level within the right maxillary sinus. Trace fluid within the left maxillary sinus. 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 at 1352 Reported and signed by: Randy Palencia MD CC: [facility]; Marcello Mcgovern MD Technologist: JET BETHEA CTDI: 35.5 DLP: 794 Trscr Dt/Tm: 11/25/2019 (6472) by:[email or web address] Orig Print D/T: S: 11/25/2019 (9144) BATCH NO: N/A Name: CECE YEE [facility] [place] Phys: Marcello Burnett MD [address] [facility] : 1935 Age: 84 Sex: F [place] Loc: T[facility] Exam Date: 11/25/2019 Status: DEP PH: FAX: PAGE 1 Signed ReportBASIC METABOLIC [id number] 13:50:00 Test Item Value Reference Range Interpretation Comments SODIUM (test code = NA) 140 mmol/L 136-145 N POTASSIUM (test code = K) 3.8 MMOL/L 3.6-5.2 N CHLORIDE (test code = CL) 104 MMOL/L 98-110 N CARBON DIOXIDE (test code = CO2) 29 mEq/L 24-32 N GLUCOSE (test code = GLU) 119 mg/dL 70-110 H BLOOD UREA NITROGEN (test code = mg/dL 7-18 BUN) GLOMERULAR FILTRATION RATE (test >60 code = GFR) CREATININE (test code = CREAT) mg/dL 0.60-1.30 CALCIUM (test code = CA) 9.0 mg/dL 8.6-10.4 N LIVER FUNCTION [id number] 13:50:00 Test Item Value Reference Range Interpretation Comments TOTAL PROTEIN (test code = PROT) g/dL 6.0-8.3 ALBUMIN (test code = ALB) g/dL 3.2-5.5 BILIRUBIN TOTAL (test code = BILT) mg/dL 0.2-1.0 BILIRUBIN DIRECT (test code = BILD) mg/dL 0.0-0.2 SGOT/AST (test code = AST) UNITS/L 10-42 SGPT/ALT (test code = ALT) UNITS/L 10-40 ALKALINE PHOSPHATASE (test code = UNITS/L 34-104 ALKP) THYROID STIMULATING [id number] 13:50:00 Test Item Value Reference Range Interpretation Comments THYROID STIMULATING HORMONE (test mIU/mL 0.38-5.60 code = TSH) [id number] 13:50:00 Test Item Value Reference Range Interpretation Comments ACETAMINOPHEN (test code = ACET) ug/mL 10.0-25.0 [id number] 13:50:00 Test Item Value Reference Range Interpretation Comments SALICYLATE (test code = TEODORA) mg/dL 0.0-30.0 [id number] 13:50:00 Test Item Value Reference Range Interpretation Comments ALCOHOL (test code = ALC) mg/dl 0.0-80.0 BASIC METABOLIC [id number] 13:47:00 Test Item Value Reference Range Interpretation Comments SODIUM (test code = NA) mmol/L 136-145 POTASSIUM (test code = K) 3.8 MMOL/L 3.6-5.2 N CHLORIDE (test code = CL) MMOL/L 98-110 CARBON DIOXIDE (test code = CO2) mEq/L 24-32 GLUCOSE (test code = GLU) mg/dL 70-110 BLOOD UREA NITROGEN (test code = mg/dL 7-18 BUN) GLOMERULAR FILTRATION RATE (test >60 code = GFR) CREATININE (test code = CREAT) mg/dL 0.60-1.30 CALCIUM (test code = CA) mg/dL 8.6-10.4 LIVER FUNCTION [id number] 13:47:00 Test Item Value Reference Range Interpretation Comments TOTAL PROTEIN (test code = PROT) g/dL 6.0-8.3 ALBUMIN (test code = ALB) g/dL 3.2-5.5 BILIRUBIN TOTAL (test code = BILT) mg/dL 0.2-1.0 BILIRUBIN DIRECT (test code = BILD) mg/dL 0.0-0.2 SGOT/AST (test code = AST) UNITS/L 10-42 SGPT/ALT (test code = ALT) UNITS/L 10-40 ALKALINE PHOSPHATASE (test code = UNITS/L 34-104 ALKP) THYROID STIMULATING [id number] 13:47:00 Test Item Value Reference Range Interpretation Comments THYROID STIMULATING HORMONE (test mIU/mL 0.38-5.60 code = TSH) [id number] 13:47:00 Test Item Value Reference Range Interpretation Comments ACETAMINOPHEN (test code = ACET) ug/mL 10.0-25.0 [id number] 13:47:00 Test Item Value Reference Range Interpretation Comments SALICYLATE (test code = TEODORA) mg/dL 0.0-30.0 [id number] 13:47:00 Test Item Value Reference Range Interpretation Comments ALCOHOL (test code = ALC) mg/dl 0.0-80.0 CBC W/AUTO [id number] 13:39:00 Test Item Value Reference Range Interpretation Comments WHITE BLOOD CELL (test code = WBC) 4.40 K/mm3 5.0-12.0 L RED BLOOD CELL (test code = RBC) 4.20 M/mm3 4.20-5.40 N HEMOGLOBIN (test code = HGB) 12.2 G/DL 12.0-16.0 N HEMATOCRIT (test code = HCT) 37.5 % 36.0-46.0 N MEAN CELL VOLUME (test code = MCV) 89 fL 81-99 N MEAN CELL HGB (test code = MCH) 29.0 PGM 27-31 N MEAN CELL HGB CONCENTRATION (test 32.5 G/DL 33-37 L code = MCHC) RED CELL DISTRIBUTION WIDTH (test 13.8 % 11.6-16.2 N code = RDW) PLATELET COUNT (test code = PLT) K/mm3 130-400 MEAN PLATELET VOLUME (test code = 11.4 fl 7.4-10.4 H MPV) NEUTROPHIL % (test code = NT%) 60.0 % 43-65 N IMMATURE GRANULOCYTE % (test code 0.5 % 0.0-2.0 N = IG%) LYMPHOCYTE % (test code = LY%) 29.5 % 20.5-45.5 N MONOCYTE % (test code = MO%) 5.7 % 5.5-11.7 N EOSINOPHIL % (test code = EO%) 3.4 % 0.9-2.9 H BASOPHIL % (test code = BA%) 0.9 % 0.2-1.0 N NUCLEATED RBC % (test code = 0.0 % 0-1.0 N NRBC%) NEUTROPHIL # (test code = NT#) 2.64 K/mm3 2.2-4.8 N LYMPHOCYTE # (test code = LY#) 1.30 K/mm3 1.3-2.9 N MONOCYTE # (test code = MO#) 0.25 K/mm3 0.3-0.8 L EOSINOPHIL # (test code = EO#) 0.15 K/MM3 0.0-0.2 N BASOPHIL # (test code = BA#) 0.04 K/mm3 0.0-0.1 N - XR CHEST 1 [id number] 13:31:00Patient Name: CECE YEE Unit No: [id number] EXAMS: CPT: [id number] XR CHEST 1 V 99229 Study: - XR CHEST 1 V Comparison: None Indication: Cough Findings: The cardiomediastinal silhouette is within normal limits. Senescent changes of the lungs is present. The lungs are hyperinflated slight increase in interstitial lung markings. No focal consolidation. No pleural effusion or pneumothorax. No acute osseous abnormalities. Impression: Hyperinflated lungs with slightly increased interstitial lung markings which mayreflect pneumonitis or vascular congestion. No focal consolidations. at 1331 Reported and signed by: MARILU LEIGH MD CC: GENERIC FOR [facility] EDDOC; Marcello Mcgovern MD Technologist: Tsering Mtz Fluoro Time: DAP (Gy m2): Air Kerma (mGy): Trscr Dt/Tm: 11/25/2019 (1331) by:José Manuel Orig Print D/T: S: 11/25/2019 (5390) BATCH NO: N/A Name: LUISEDITHANNIKACECE Johnson [facility] [place] Phys: Marcello Burnett MD [address] [facility] : 1935 Age: 84 Sex: F Vee Maradiaga [facility] No: [id number] Loc: T.ERS Exam Date: 11/25/2019 Status: REG ER PH: FAX: PAGE 1 Signed Report- MRI BRAIN W WO [id number] 16:14:00 Patient Name: CECE ROBLERO Unit No: [id number] EXAMS: CPT CODE: [id number] MRI BRAIN W WO CONT 00091 Dictation location: U19. MRI BRAIN WITHOUT AND WITH CONTRAST HISTORY: DEMENTIA WITH BEHAVIORAL DISTURBANCE TECHNIQUE: Multiplanar and multiple pulse sequences were obtained throughout the brain without and with gadolinium (12 mL Dotarem). COMPARISON: CT head 07/09/19 FINDINGS: Diffusion weighted imaging shows no evidence of acute ischemia. The pituitary and posterior fossa are unremarkable. 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 No abnormal enhancement. Mild generalized atrophy. Mild scattered T2 and FLAIR signal hyperintensities in noted within the periventricular and deep white matter, more commonly associated with chronic microvascular ischemic changes. Blooming artifact is noted in the periventricular white matter of the right frontal horn likely related to chronic hemosiderin. No acute hemorrhage, mass, mass effect, hydrocephalus, midline shift or extra-axial fluid collection. Postcontrast images show no abnormal enhancement. Small amount of fluid seen in the maxillary sinuses bilaterally. Mild thickening of the ethmoid sinuses. The [place] lenses of both globes are absent. IMPRESSION: No evidence of acute ischemia. 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 Mild chronic microvascular ischemic changes and generalized atrophy. at 1614 Reported and signed by: Ck Gamez MD CC: Rich Flood MD; Sea Cash MD Dictated Date/Time: 10/28/2019 (1613) Technologist: Peg Vogel Trnscrbd D/ (1613) [email or web address] Orig Print D/T: S: 2019 (1616) [facility] NAME: CECE ROBLERO [address] PHYS: Sea Snow MD [address] : 1935 AGE: 84 SEX: [place] [address] LOC: DINESH1 PHONE #: [phone] EXAM DATE: 10/28/2019 STATUS: REG REAGAN FAX #: [phone] RAD NO: Page 1 Signed ReportBEDSIDE [id number] 15:19:00 Test Item Value Reference Range Interpretation Comments BEDSIDE CREATININE (test 0.7 MG/DL 0.6-1.2 N SPE C. SOURCE STEPHEN~ code = CREATBED) COMPREHENSIVE METABOLIC [id number] 11:09:00 Test Item Value Reference Range Interpretation Comments SODIUM (test code = 140.0 mmol/L 133-144 N NA) POTASSIUM (test code 4.0 mmol/L 3.5-5.1 N = K) CHLORIDE (test code 107 mmol/L 95-105 H = CL) CARBON DIOXIDE (test 28 mmol/L 21-32 N code = CO2) ANION GAP (test code 5.0 GAP calc 4.0-15.0 N = GAP) GLUCOSE (test code = 107 MG/DL 70-110 N GLU) BLOOD UREA NITROGEN 15 MG/DL 7-18 N (test code = BUN) GLOMERULAR 78 estGFR >60 The estimated FILTRATION RATE glomerular (test code = GFR) filtration rate is computed usingpatient ra ce, age, sex, and s vanesa creatinine. If any of theneeded da ta elements are mi ssing the Laboratory can notcompute an estimation of t he glomerular filtration rate .The GFR value units = ml/min/1.73 met er squared. EstimatedGFR va lues above 60 should be interpreted as >60, not anexact number.--- DRUG DOSAGE ALERT -- - Drug dosage adjustments uti lize different calculationpara meter s. CREATININE (test 0.72 MG/DL 0.55-1.30 N Results may be code = CREAT) depressed if p atient is takingN-Acetylc ystei ne (NAC) and Metamizole (Dipyrone). TOTAL PROTEIN (test 7.2 G/DL 6.4-8.2 N code = PROT) ALBUMIN (test code = 3.8 G/DL 3.4-5.0 N ALB) ALBUMIN/GLOBULIN 1.1 RATIO 1.2-2.2 L RATIO (test code = A/G) CALCIUM (test code = 8.9 MG/DL 8.5-10.1 N CA) BILIRUBIN TOTAL 0.63 MG/DL 0.00-1.00 N (test code = BILT) BILIRUBIN DIRECT 0.13 MG/DL 0.00-0.30 N (test code = BILD) BILIRUBIN INDIRECT 0.50 MG/DL 0.2-1.3 N (test code = BILIND) SGOT/AST (test code 15 Unit/L 15-37 N = AST) SGPT/ALT (test code 15 Unit/L 12-78 N = ALT) ALKALINE PHOSPHATASE 99 Unit/L 45-117 N TOTAL (test code = ALKP) INDEX HEMOLYSIS 1 NORMAL <10 1 NORMAL (test code = MG Index/DL HEMINDEX) INDEX ICTERIC (test 1 NORMAL <2 MG 1 NORMAL code = ICTINDEX) Index/DL INDEX LIPEMIA (test 1 NORMAL <50 1 NORMAL code = LIPINDEX) MG Index/DL FAX TO FAX TO Y,N: The patient will be fasting before starting this test?YT3 [id number] 11:09:00 Test Item Value Reference Range Interpretation Comments T3 FREE (test code = T3F) 2.17 PG/ML 2.18-3.98 L FAX TO FAX TO Y,N: The patient will be fasting before starting this test?YT3 [id number] 11:09:00 Test Item Value Reference Range Interpretation Comments T3 REVERSE 20.8 ng/dL 9.2-24.1 This test was d eveloped and its (test code = performance T3REV) characteristics determined by [facility]. It has not been cleared orappro hugo by the Food and Drug Administration. Performed At: [facility] [place][Note 2] [id number] [place], [place] [id number] ra Lilo PETERSON Ph:[phone] FAX TO FAX TO Y,N: The patient will be fasting before starting this test?YT4 [id number] 11:09:00 Test Item Value Reference Range Interpretation Comments T4 FREE (test code = T4F) 1.00 NG/DL 0.76-1.46 N FAX TO FAX TO Y,N: The patient will be fasting before starting this test?Y THYROID STIMULATING [id number] 11:09:00 Test Item Value Reference Range Interpretation Comments THYROID STIMULATING HORMONE 1.620 mc IU/ML 0.340-4.820 N (test code = TSH) FAX TO FAX TO Y,N: The patient will be fasting before starting this test?YDHEA [id number] 11:09:00 Test Item Value Reference Range Interpretation Comments DHEA SULFATE (test 117.0 ug/dL 13.9-142.8 Performed At: HD code = DHEAS) [facility] [address] [place], [place] [id number] austin Cui MD Ph:[phone] FAX TO FAX TO Y,N: The patient will be fasting before starting this test?Y [id number] 11:09:00 Test Item Value Reference Range Interpretation Comments HOMOCYSTEINE (test code = HOMOCY) 8.9 umol/L 5.0-15.0 FAX TO FAX TO Y,N: The patient will be fasting before starting this test?Y VITAMIN B6/[id number] 11:09:00 Test Item Value Reference Range Interpretation Comments VITAMIN B6/PYRIDOXINE 7.9 ug/L 2.0-32.8 Perfor med At: BN (test code = VITB6) [facility] [address] [id number] anuj Nagy MD Ph:[phone] FAX TO FAX TO Y,N: The patient will be fasting before starting this test?Y VITAMIN B1 (THIAMINE)2019-10-18 11:09:00 Test Item Value Reference Range Interpretation Comments VITAMIN B1 134.6 nmol/L 66.5-200.0 Performed At: B N (THIAMINE) (test [facility] code = VITB1) [address] [id number] Nagy MD Ph:[phone] FAX TO FAX TO Y,N: The patient will be fasting before starting this test?Y COMPREHENSIVE METABOLIC [id number] 17:07:00 Test Item Value Reference Range Interpretation Comments SODIUM (test code = 140.0 mmol/L 133-144 N NA) POTASSIUM (test code 4.0 mmol/L 3.5-5.1 N = K) CHLORIDE (test code 107 mmol/L 95-105 H = CL) CARBON DIOXIDE (test 28 mmol/L 21-32 N code = CO2) ANION GAP (test code 5.0 GAP calc 4.0-15.0 N = GAP) GLUCOSE (test code = 107 MG/DL 70-110 N GLU) BLOOD UREA NITROGEN 15 MG/DL 7-18 N (test code = BUN) GLOMERULAR 78 estGFR >60 The estimated FILTRATION RATE glomerular (test code = GFR) filtration rate is computed usingpatient ra ce, age, sex, and s vanesa creatinine. If any of theneeded da ta elements are mi ssing the Laboratory can notcompute an estimation of t he glomerular filtration rate .The GFR value units = ml/min/1.73 met er squared. EstimatedGFR va lues above 60 should be interpreted as >60, not anexact number.--- DRUG DOSAGE ALERT -- - Drug dosage adjustments uti lize different calculationpara meter s. CREATININE (test 0.72 MG/DL 0.55-1.30 N Results may be code = CREAT) depressed if p atient is takingN-Acetylc ystei ne (NAC) and Metamizole (Dipyrone). TOTAL PROTEIN (test 7.2 G/DL 6.4-8.2 N code = PROT) ALBUMIN (test code = 3.8 G/DL 3.4-5.0 N ALB) ALBUMIN/GLOBULIN 1.1 RATIO 1.2-2.2 L RATIO (test code = A/G) CALCIUM (test code = 8.9 MG/DL 8.5-10.1 N CA) BILIRUBIN TOTAL 0.63 MG/DL 0.00-1.00 N (test code = BILT) BILIRUBIN DIRECT 0.13 MG/DL 0.00-0.30 N (test code = BILD) BILIRUBIN INDIRECT 0.50 MG/DL 0.2-1.3 N (test code = BILIND) SGOT/AST (test code 15 Unit/L 15-37 N = AST) SGPT/ALT (test code 15 Unit/L 12-78 N = ALT) ALKALINE PHOSPHATASE 99 Unit/L 45-117 N TOTAL (test code = ALKP) INDEX HEMOLYSIS 1 NORMAL <10 1 NORMAL (test code = MG Index/DL HEMINDEX) INDEX ICTERIC (test 1 NORMAL <2 MG 1 NORMAL code = ICTINDEX) Index/DL INDEX LIPEMIA (test 1 NORMAL <50 1 NORMAL code = LIPINDEX) MG Index/DL FAX TO FAX TO Y,N: The patient will be fasting before starting this test?YT3 [id number] 17:07:00 Test Item Value Reference Range Interpretation Comments T3 FREE (test code = T3F) 2.17 PG/ML 2.18-3.98 L FAX TO FAX TO Y,N: The patient will be fasting before starting this test?YT3 [id number] 17:07:00 Test Item Value Reference Range Interpretation Comments T3 REVERSE (test code = T3REV) ng/dL FAX TO FAX TO Y,N: The patient will be fasting before starting this test?YT4 [id number] 17:07:00 Test Item Value Reference Range Interpretation Comments T4 FREE (test code = T4F) 1.00 NG/DL 0.76-1.46 N FAX TO FAX TO Y,N: The patient will be fasting before starting this test?Y THYROID STIMULATING [id number] 17:07:00 Test Item Value Reference Range Interpretation Comments THYROID STIMULATING HORMONE 1.620 mc IU/ML 0.340-4.820 N (test code = TSH) FAX TO FAX TO Y,N: The patient will be fasting before starting this test?YDHEA [id number] 17:07:00 Test Item Value Reference Range Interpretation Comments DHEA SULFATE (test 117.0 ug/dL 13.9-142.8 Performed At: HD code = DHEAS) [facility] [address] [place], [place] [id number] austin Cui MD Ph:[phone] FAX TO FAX TO Y,N: The patient will be fasting before starting this test?Y [id number] 17:07:00 Test Item Value Reference Range Interpretation Comments HOMOCYSTEINE (test code = HOMOCY) 8.9 umol/L 5.0-15.0 FAX TO FAX TO Y,N: The patient will be fasting before starting this test?Y VITAMIN B6/[id number] 17:07:00 Test Item Value Reference Range Interpretation Comments VITAMIN B6/PYRIDOXINE 7.9 ug/L 2.0-32.8 Perfor med At: BN (test code = VITB6) [facility] [address] [place], [place] [id number] anuj Nagy MD Ph:[phone] FAX TO FAX TO Y,N: The patient will be fasting before starting this test?Y VITAMIN B1 (THIAMINE)2019-10-17 17:07:00 Test Item Value Reference Range Interpretation Comments VITAMIN B1 134.6 nmol/L 66.5-200.0 Performed At: B N (THIAMINE) (test [facility] code = VITB1) [address] [id number] ra Lilo PETERSON Ph:[phone] FAX TO FAX TO Y,N: The patient will be fasting before starting this test?Y COMPREHENSIVE METABOLIC [id number] 17:08:00 Test Item Value Reference Range Interpretation Comments SODIUM (test code = 140.0 mmol/L 133-144 N NA) POTASSIUM (test code 4.0 mmol/L 3.5-5.1 N = K) CHLORIDE (test code 107 mmol/L 95-105 H = CL) CARBON DIOXIDE (test 28 mmol/L 21-32 N code = CO2) ANION GAP (test code 5.0 GAP calc 4.0-15.0 N = GAP) GLUCOSE (test code = 107 MG/DL 70-110 N GLU) BLOOD UREA NITROGEN 15 MG/DL 7-18 N (test code = BUN) GLOMERULAR 78 estGFR >60 The estimated FILTRATION RATE glomerular (test code = GFR) filtration rate is computed usingpatient ra ce, age, sex, and s vanesa creatinine. If any of theneeded da ta elements are mi ssing the Laboratory can notcompute an estimation of t he glomerular filtration rate .The GFR value units = ml/min/1.73 met er squared. EstimatedGFR va lues above 60 should be interpreted as >60, not anexact number.--- DRUG DOSAGE ALERT -- - Drug dosage adjustments uti lize different calculationpara meter s. CREATININE (test 0.72 MG/DL 0.55-1.30 N Results may be code = CREAT) depressed if p atient is takingN-Acetylc ystei ne (NAC) and Metamizole (Dipyrone). TOTAL PROTEIN (test 7.2 G/DL 6.4-8.2 N code = PROT) ALBUMIN (test code = 3.8 G/DL 3.4-5.0 N ALB) ALBUMIN/GLOBULIN 1.1 RATIO 1.2-2.2 L RATIO (test code = A/G) CALCIUM (test code = 8.9 MG/DL 8.5-10.1 N CA) BILIRUBIN TOTAL 0.63 MG/DL 0.00-1.00 N (test code = BILT) BILIRUBIN DIRECT 0.13 MG/DL 0.00-0.30 N (test code = BILD) BILIRUBIN INDIRECT 0.50 MG/DL 0.2-1.3 N (test code = BILIND) SGOT/AST (test code 15 Unit/L 15-37 N = AST) SGPT/ALT (test code 15 Unit/L 12-78 N = ALT) ALKALINE PHOSPHATASE 99 Unit/L 45-117 N TOTAL (test code = ALKP) INDEX HEMOLYSIS 1 NORMAL <10 1 NORMAL (test code = MG Index/DL HEMINDEX) INDEX ICTERIC (test 1 NORMAL <2 MG 1 NORMAL code = ICTINDEX) Index/DL INDEX LIPEMIA (test 1 NORMAL <50 1 NORMAL code = LIPINDEX) MG Index/DL FAX TO FAX TO Y,N: The patient will be fasting before starting this test?YT3 [id number] 17:08:00 Test Item Value Reference Range Interpretation Comments T3 FREE (test code = T3F) 2.17 PG/ML 2.18-3.98 L FAX TO FAX TO Y,N: The patient will be fasting before starting this test?YT3 [id number] 17:08:00 Test Item Value Reference Range Interpretation Comments T3 REVERSE (test code = T3REV) ng/dL FAX TO FAX TO Y,N: The patient will be fasting before starting this test?YT4 [id number] 17:08:00 Test Item Value Reference Range Interpretation Comments T4 FREE (test code = T4F) 1.00 NG/DL 0.76-1.46 N FAX TO FAX TO Y,N: The patient will be fasting before starting this test?Y THYROID STIMULATING [id number] 17:08:00 Test Item Value Reference Range Interpretation Comments THYROID STIMULATING HORMONE 1.620 mc IU/ML 0.340-4.820 N (test code = TSH) FAX TO FAX TO Y,N: The patient will be fasting before starting this test?YDHEA [id number] 17:08:00 Test Item Value Reference Range Interpretation Comments DHEA SULFATE (test 117.0 ug/dL 13.9-142.8 Performed At: HD code = DHEAS) [facility] [address] [place], [place] [id number] austin Cui MD Ph:[phone] FAX TO FAX TO Y,N: The patient will be fasting before starting this test?Y [id number] 17:08:00 Test Item Value Reference Range Interpretation Comments HOMOCYSTEINE (test code = HOMOCY) 8.9 umol/L 5.0-15.0 FAX TO FAX TO Y,N: The patient will be fasting before starting this test?Y VITAMIN B6/[id number] 17:08:00 Test Item Value Reference Range Interpretation Comments VITAMIN B6/PYRIDOXINE 7.9 ug/L 2.0-32.8 Perfor med At: BN (test code = VITB6) [facility] [address] [place], [place] [id number] anuj Nagy MD Ph:[phone] FAX TO FAX TO Y,N: The patient will be fasting before starting this test?Y VITAMIN B1 (THIAMINE)2019-10-16 17:08:00 Test Item Value Reference Range Interpretation Comments VITAMIN B1 (THIAMINE) (test code = VITB1) FAX TO FAX TO Y,N: The patient will be fasting before starting this test?Y COMPREHENSIVE METABOLIC [id number] 20:36:00 Test Item Value Reference Range Interpretation Comments SODIUM (test code = 140.0 mmol/L 133-144 N NA) POTASSIUM (test code 4.0 mmol/L 3.5-5.1 N = K) CHLORIDE (test code 107 mmol/L 95-105 H = CL) CARBON DIOXIDE (test 28 mmol/L 21-32 N code = CO2) ANION GAP (test code 5.0 GAP calc 4.0-15.0 N = GAP) GLUCOSE (test code = 107 MG/DL 70-110 N GLU) BLOOD UREA NITROGEN 15 MG/DL 7-18 N (test code = BUN) GLOMERULAR 78 estGFR >60 The estimated FILTRATION RATE glomerular (test code = GFR) filtration rate is computed usingpatient ra ce, age, sex, and s vanesa creatinine. If any of theneeded da ta elements are mi ssing the Laboratory can notcompute an estimation of t he glomerular filtration rate .The GFR value units = ml/min/1.73 met er squared. EstimatedGFR va lues above 60 should be interpreted as >60, not anexact number.--- DRUG DOSAGE ALERT -- - Drug dosage adjustments uti lize different calculationpara meter s. CREATININE (test 0.72 MG/DL 0.55-1.30 N Results may be code = CREAT) depressed if p atient is takingN-Acetylc ystei ne (NAC) and Metamizole (Dipyrone). TOTAL PROTEIN (test 7.2 G/DL 6.4-8.2 N code = PROT) ALBUMIN (test code = 3.8 G/DL 3.4-5.0 N ALB) ALBUMIN/GLOBULIN 1.1 RATIO 1.2-2.2 L RATIO (test code = A/G) CALCIUM (test code = 8.9 MG/DL 8.5-10.1 N CA) BILIRUBIN TOTAL 0.63 MG/DL 0.00-1.00 N (test code = BILT) BILIRUBIN DIRECT 0.13 MG/DL 0.00-0.30 N (test code = BILD) BILIRUBIN INDIRECT 0.50 MG/DL 0.2-1.3 N (test code = BILIND) SGOT/AST (test code 15 Unit/L 15-37 N = AST) SGPT/ALT (test code 15 Unit/L 12-78 N = ALT) ALKALINE PHOSPHATASE 99 Unit/L 45-117 N TOTAL (test code = ALKP) INDEX HEMOLYSIS 1 NORMAL <10 1 NORMAL (test code = MG Index/DL HEMINDEX) INDEX ICTERIC (test 1 NORMAL <2 MG 1 NORMAL code = ICTINDEX) Index/DL INDEX LIPEMIA (test 1 NORMAL <50 1 NORMAL code = LIPINDEX) MG Index/DL FAX TO FAX TO Y,N: The patient will be fasting before starting this test?YT3 [id number] 20:36:00 Test Item Value Reference Range Interpretation Comments T3 FREE (test code = T3F) 2.17 PG/ML 2.18-3.98 L FAX TO FAX TO Y,N: The patient will be fasting before starting this test?YT3 [id number] 20:36:00 Test Item Value Reference Range Interpretation Comments T3 REVERSE (test code = T3REV) ng/dL FAX TO FAX TO Y,N: The patient will be fasting before starting this test?YT4 [id number] 20:36:00 Test Item Value Reference Range Interpretation Comments T4 FREE (test code = T4F) 1.00 NG/DL 0.76-1.46 N FAX TO FAX TO Y,N: The patient will be fasting before starting this test?Y THYROID STIMULATING [id number] 20:36:00 Test Item Value Reference Range Interpretation Comments THYROID STIMULATING HORMONE 1.620 mc IU/ML 0.340-4.820 N (test code = TSH) FAX TO FAX TO Y,N: The patient will be fasting before starting this test?YDHEA [id number] 20:36:00 Test Item Value Reference Range Interpretation Comments DHEA SULFATE (test 117.0 ug/dL 13.9-142.8 Performed At: HD code = DHEAS) [facility] [address] [place], [place] [id number] austin Cui MD Ph:[phone] FAX TO FAX TO Y,N: The patient will be fasting before starting this test?Y [id number] 20:36:00 Test Item Value Reference Range Interpretation Comments HOMOCYSTEINE (test code = HOMOCY) 8.9 umol/L 5.0-15.0 FAX TO FAX TO Y,N: The patient will be fasting before starting this test?Y VITAMIN B6/[id number] 20:36:00 Test Item Value Reference Range Interpretation Comments VITAMIN B6/PYRIDOXINE (test code = VITB6) FAX TO FAX TO Y,N: The patient will be fasting before starting this test?Y VITAMIN B1 (THIAMINE)2019-10-14 20:36:00 Test Item Value Reference Range Interpretation Comments VITAMIN B1 (THIAMINE) (test code = VITB1) FAX TO FAX TO Y,N: The patient will be fasting before starting this test?YHIGH SENSITIVITY [id number] 20:23:00 Test Item Value Reference Range Interpretation Comments HIGH SENSITIVITY CRP (test code = 0.404 mg/dl 0.000-0.747 CRPHS) FAX TOCOMPREHENSIVE METABOLIC [id number] 07:12:00 Test Item Value Reference Range Interpretation Comments SODIUM (test code = 140.0 mmol/L 133-144 N NA) POTASSIUM (test code 4.0 mmol/L 3.5-5.1 N = K) CHLORIDE (test code 107 mmol/L 95-105 H = CL) CARBON DIOXIDE (test 28 mmol/L 21-32 N code = CO2) ANION GAP (test code 5.0 GAP calc 4.0-15.0 N = GAP) GLUCOSE (test code = 107 MG/DL 70-110 N GLU) BLOOD UREA NITROGEN 15 MG/DL 7-18 N (test code = BUN) GLOMERULAR 78 estGFR >60 The estimated FILTRATION RATE glomerular (test code = GFR) filtration rate is computed usingpatient ra ce, age, sex, and s vanesa creatinine. If any of theneeded da ta elements are mi ssing the Laboratory can notcompute an estimation of t he glomerular filtration rate .The GFR value units = ml/min/1.73 met er squared. EstimatedGFR va lues above 60 should be interpreted as >60, not anexact number.--- DRUG DOSAGE ALERT -- - Drug dosage adjustments uti lize different calculationpara meter s. CREATININE (test 0.72 MG/DL 0.55-1.30 N Results may be code = CREAT) depressed if p atient is takingN-Acetylc ystei ne (NAC) and Metamizole (Dipyrone). TOTAL PROTEIN (test 7.2 G/DL 6.4-8.2 N code = PROT) ALBUMIN (test code = 3.8 G/DL 3.4-5.0 N ALB) ALBUMIN/GLOBULIN 1.1 RATIO 1.2-2.2 L RATIO (test code = A/G) CALCIUM (test code = 8.9 MG/DL 8.5-10.1 N CA) BILIRUBIN TOTAL 0.63 MG/DL 0.00-1.00 N (test code = BILT) BILIRUBIN DIRECT 0.13 MG/DL 0.00-0.30 N (test code = BILD) BILIRUBIN INDIRECT 0.50 MG/DL 0.2-1.3 N (test code = BILIND) SGOT/AST (test code 15 Unit/L 15-37 N = AST) SGPT/ALT (test code 15 Unit/L 12-78 N = ALT) ALKALINE PHOSPHATASE 99 Unit/L 45-117 N TOTAL (test code = ALKP) INDEX HEMOLYSIS 1 NORMAL <10 1 NORMAL (test code = MG Index/DL HEMINDEX) INDEX ICTERIC (test 1 NORMAL <2 MG 1 NORMAL code = ICTINDEX) Index/DL INDEX LIPEMIA (test 1 NORMAL <50 1 NORMAL code = LIPINDEX) MG Index/DL FAX TOT3 [id number] 07:12:00 Test Item Value Reference Range Interpretation Comments T3 FREE (test code = T3F) 2.17 PG/ML 2.18-3.98 L FAX TOT3 [id number] 07:12:00 Test Item Value Reference Range Interpretation Comments T3 REVERSE (test code = T3REV) ng/dL FAX TOT4 [id number] 07:12:00 Test Item Value Reference Range Interpretation Comments T4 FREE (test code = T4F) 1.00 NG/DL 0.76-1.46 N FAX TOTHYROID STIMULATING [id number] 07:12:00 Test Item Value Reference Range Interpretation Comments THYROID STIMULATING HORMONE 1.620 mc IU/ML 0.340-4.820 N (test code = TSH) FAX TODHEA [id number] 07:12:00 Test Item Value Reference Range Interpretation Comments DHEA SULFATE (test 117.0 ug/dL 13.9-142.8 Performed At: HD code = DHEAS) [facility] [address] [place], [place] [id number] austin Cui MD Ph:[phone] FAX [id number] 07:12:00 Test Item Value Reference Range Interpretation Comments HOMOCYSTEINE (test code = HOMOCY) FAX TOVITAMIN [id number] 07:12:00 Test Item Value Reference Range Interpretation Comments VITAMIN B6/PYRIDOXINE (test code = VITB6) FAX TOVITAMIN B1 (THIAMINE)2019-10-14 07:12:00 Test Item Value Reference Range Interpretation Comments VITAMIN B1 (THIAMINE) (test code = VITB1) FAX TOVITAMIN [id number] 18:50:00 Test Item Value Reference Range Interpretation Comments VITAMIN B12 (test code = VITB12) >2000 PG/ML 183-986 H FAX TOFOLIC [id number] 18:50:00 Test Item Value Reference Range Interpretation Comments FOLIC ACID (test code = FOL) > 20.00 NG/ML 3.10-17.50 H FAX TOCOMPREHENSIVE METABOLIC [id number] 18:11:00 Test Item Value Reference Range Interpretation Comments SODIUM (test code = 140.0 mmol/L 133-144 N NA) POTASSIUM (test code 4.0 mmol/L 3.5-5.1 N = K) CHLORIDE (test code 107 mmol/L 95-105 H = CL) CARBON DIOXIDE (test 28 mmol/L 21-32 N code = CO2) ANION GAP (test code 5.0 GAP calc 4.0-15.0 N = GAP) GLUCOSE (test code = 107 MG/DL 70-110 N GLU) BLOOD UREA NITROGEN 15 MG/DL 7-18 N (test code = BUN) GLOMERULAR 78 estGFR >60 The estimated FILTRATION RATE glomerular (test code = GFR) filtration rate is computed usingpatient ra ce, age, sex, and s vanesa creatinine. If any of theneeded da ta elements are mi ssing the Laboratory can notcompute an estimation of t he glomerular filtration rate .The GFR value units = ml/min/1.73 met er squared. EstimatedGFR va lues above 60 should be interpreted as >60, not anexact number.--- DRUG DOSAGE ALERT -- - Drug dosage adjustments uti lize different calculationpara meter s. CREATININE (test 0.72 MG/DL 0.55-1.30 N Results may be code = CREAT) depressed if p atient is takingN-Acetylc ystei ne (NAC) and Metamizole (Dipyrone). TOTAL PROTEIN (test 7.2 G/DL 6.4-8.2 N code = PROT) ALBUMIN (test code = 3.8 G/DL 3.4-5.0 N ALB) ALBUMIN/GLOBULIN 1.1 RATIO 1.2-2.2 L RATIO (test code = A/G) CALCIUM (test code = 8.9 MG/DL 8.5-10.1 N CA) BILIRUBIN TOTAL 0.63 MG/DL 0.00-1.00 N (test code = BILT) BILIRUBIN DIRECT 0.13 MG/DL 0.00-0.30 N (test code = BILD) BILIRUBIN INDIRECT 0.50 MG/DL 0.2-1.3 N (test code = BILIND) SGOT/AST (test code 15 Unit/L 15-37 N = AST) SGPT/ALT (test code 15 Unit/L 12-78 N = ALT) ALKALINE PHOSPHATASE 99 Unit/L 45-117 N TOTAL (test code = ALKP) INDEX HEMOLYSIS 1 NORMAL <10 1 NORMAL (test code = MG Index/DL HEMINDEX) INDEX ICTERIC (test 1 NORMAL <2 MG 1 NORMAL code = ICTINDEX) Index/DL INDEX LIPEMIA (test 1 NORMAL <50 1 NORMAL code = LIPINDEX) MG Index/DL FAX TOT3 [id number] 18:11:00 Test Item Value Reference Range Interpretation Comments T3 FREE (test code = T3F) 2.17 PG/ML 2.18-3.98 L FAX TOT3 [id number] 18:11:00 Test Item Value Reference Range Interpretation Comments T3 REVERSE (test code = T3REV) ng/dL FAX TOT4 [id number] 18:11:00 Test Item Value Reference Range Interpretation Comments T4 FREE (test code = T4F) 1.00 NG/DL 0.76-1.46 N FAX TOTHYROID STIMULATING [id number] 18:11:00 Test Item Value Reference Range Interpretation Comments THYROID STIMULATING HORMONE 1.620 mc IU/ML 0.340-4.820 N (test code = TSH) FAX TODHEA [id number] 18:11:00 Test Item Value Reference Range Interpretation Comments DHEA SULFATE (test code = DHEAS) FAX [id number] 18:11:00 Test Item Value Reference Range Interpretation Comments HOMOCYSTEINE (test code = HOMOCY) FAX TOVITAMIN [id number]/[id number] 18:11:00 Test Item Value Reference Range Interpretation Comments VITAMIN B6/PYRIDOXINE (test code = VITB6) FAX TOVITAMIN B1 (THIAMINE)2019-10-13 18:11:00 Test Item Value Reference Range Interpretation Comments VITAMIN B1 (THIAMINE) (test code = VITB1) FAX TOCOMPREHENSIVE METABOLIC [id number] 18:00:00 Test Item Value Reference Range Interpretation Comments SODIUM (test code = NA) 140.0 mmol/L 133-144 N POTASSIUM (test code = K) 4.0 mmol/L 3.5-5.1 N CHLORIDE (test code = CL) 107 mmol/L 95-105 H CARBON DIOXIDE (test code mmol/L 21-32 = CO2) ANION GAP (test code = GAP calc 4.0-15.0 GAP) GLUCOSE (test code = GLU) MG/DL 70-110 BLOOD UREA NITROGEN (test MG/DL 7-18 code = BUN) CREATININE (test code = MG/DL 0.55-1.30 CREAT) TOTAL PROTEIN (test code G/DL 6.4-8.2 = PROT) ALBUMIN (test code = ALB) G/DL 3.4-5.0 ALBUMIN/GLOBULIN RATIO RATIO 1.2-2.2 (test code = A/G) CALCIUM (test code = CA) MG/DL 8.5-10.1 BILIRUBIN TOTAL (test MG/DL 0.00-1.00 code = BILT) BILIRUBIN DIRECT (test MG/DL 0.00-0.30 code = BILD) BILIRUBIN INDIRECT (test MG/DL 0.2-1.3 code = BILIND) SGOT/AST (test code = Unit/L 15-37 AST) SGPT/ALT (test code = Unit/L 12-78 ALT) ALKALINE PHOSPHATASE Unit/L 45-117 TOTAL (test code = ALKP) INDEX HEMOLYSIS (test 1 NORMAL <10 MG 1 NORMAL code = HEMINDEX) Index/DL INDEX ICTERIC (test code 1 NORMAL <2 MG 1 NORMAL = ICTINDEX) Index/DL INDEX LIPEMIA (test code 1 NORMAL <50 MG 1 NORMAL = LIPINDEX) Index/DL FAX TOT3 [id number] 18:00:00 Test Item Value Reference Range Interpretation Comments T3 FREE (test code = T3F) PG/ML 2.18-3.98 FAX TOT3 [id number] 18:00:00 Test Item Value Reference Range Interpretation Comments T3 REVERSE (test code = T3REV) ng/dL FAX TOT4 [id number] 18:00:00 Test Item Value Reference Range Interpretation Comments T4 FREE (test code = T4F) NG/DL 0.76-1.46 FAX TOTHYROID STIMULATING [id number] 18:00:00 Test Item Value Reference Range Interpretation Comments THYROID STIMULATING HORMONE (test mc IU/ML 0.340-4.820 code = TSH) FAX TODHEA [id number] 18:00:00 Test Item Value Reference Range Interpretation Comments DHEA SULFATE (test code = DHEAS) FAX [id number] 18:00:00 Test Item Value Reference Range Interpretation Comments HOMOCYSTEINE (test code = HOMOCY) FAX TOVITAMIN [id number] 18:00:00 Test Item Value Reference Range Interpretation Comments VITAMIN B6/PYRIDOXINE (test code = VITB6) FAX TOVITAMIN B1 (THIAMINE)2019-10-13 18:00:00 Test Item Value Reference Range Interpretation Comments VITAMIN B1 (THIAMINE) (test code = VITB1) FAX TOGLYCOSYLATED HEMOGLOBIN (HA1C)2019-10-13 17:59:00 Test Item Value Reference Range Interpretation Comments GLYCOSYLATED HEMOGLOBIN (HA1C) 6.2 % A1C 4.2-6.3 N (test code = GLYHGB) FAX TOCBC W/AUTO [id number] 17:38:00 Test Item Value Reference Range Interpretation Comments WHITE BLOOD CELL (test code = 4.3 K/mm3 4.1-12.1 N WBC) RED BLOOD CELL (test code = RBC) 4.74 M/mm3 3.8-5.5 N HEMOGLOBIN (test code = HGB) 13.9 G/DL 10.6-15.8 N HEMATOCRIT (test code = HCT) 42.3 % 31.8-47.4 N MEAN CELL VOLUME (test code = 89.2 fL 80.1-101.1 N MCV) MEAN CELL HGB (test code = MCH) 29.3 pg 25.3-35.3 N MEAN CELL HGB CONCETRATION (test 32.9 G/DL 32.7-35.1 N code = MCHC) RED CELL DISTRIBUTION WIDTH 13.8 % 12.2-16.4 N (test code = RDW) RED CELL DISTRIBUTION WIDTH 45.9 fL 36.4-46.3 N (test code = RDW-SD) PLATELET COUNT (test code = PLT) 271 K/mm3 155-337 N MEAN PLATELET VOLUME (test code 10.3 fL 6.8-11.2 N = MPV) GRANULOCYTE % (test code = GR%) 50.5 % 37.8-82.6 N IMMATURE GRANULOCYTE % (test 0.0 % 0.0-2.0 N code = IG%) LYMPHOCYTE % (test code = LY%) 35.1 % 14.1-45.4 N MONOCYTE % (test code = MO%) 7.4 % 2.5-11.7 N EOSINOPHIL % (test code = EO%) 5.6 % 0.0-6.2 N BASOPHIL % (test code = BA%) 1.4 % 0.0-2.1 N NUCLEATED RBC % (test code = 0.0 /100WBC% 0.0-1.0 N NRBC%) GRANULOCYTE # (test code = GR#) 2.17 k/mm3 2.0-13.7 N IMMATURE GRANULOCYTE # (test 0.00 K/mm3 0.00-0.03 N code = IG#) LYMPHOCYTE # (test code = LY#) 1.51 K/mm3 0.6-3.8 N MONOCYTE # (test code = MO#) 0.32 K/mm3 0.11-0.59 N EOSINOPHIL # (test code = EO#) 0.24 K/mm3 0.0-0.4 N BASOPHIL # (test code = BA#) 0.06 K/mm3 0.0-0.1 N NUCLEATED RBC # (test code = 0.00 K/mm3 0.0-0.05 N NRBC#) FAX TOUrine [id number] 10:54:00 Test Item Value Reference Range Interpretation Comments Result (test code = 70-79,000 col/mL skin 6463-4) [facility] [id number] 10:54:00 Test Item Value Reference Range Interpretation Comments CULTURE (BEAKER) (test 70-79,000 col/mL skin code = 1095) ankur BASIC METABOLIC [id number] 06:39:00 Test Item Value Reference Range Interpretation Comments SODIUM (test code = 136.0 mmol/L 133-144 N NA) POTASSIUM (test code 3.9 mmol/L 3.5-5.1 N = K) CHLORIDE (test code 103 mmol/L 95-105 N = CL) CARBON DIOXIDE (test 30 mmol/L 21-32 N code = CO2) ANION GAP (test code 3.0 GAP calc 4.0-15.0 L = GAP) GLUCOSE (test code = 105 MG/DL 70-110 N GLU) BLOOD UREA NITROGEN 13 MG/DL 7-18 N (test code = BUN) CREATININE (test 0.74 MG/DL 0.55-1.30 N Results may be code = CREAT) depressed if patient is takingN-Acetylc yste ine (NAC) and Metamizole (Dipyrone). CALCIUM (test code = 8.8 MG/DL 8.5-10.1 N CA) INDEX HEMOLYSIS 2 TRACE 10-25 1 NORMAL (test code = MG Index/DL HEMINDEX) INDEX ICTERIC (test 1 NORMAL <2 MG 1 NORMAL code = ICTINDEX) Index/DL INDEX LIPEMIA (test 1 NORMAL <50 MG 1 NORMAL code = LIPINDEX) Index/DL [id number] 06:39:00 Test Item Value Reference Range Interpretation Comments TROPONIN-I < 0.015 NG/ML 0.000-0.045 N INTERPRET WITH CAUTION, THIS (test code = VALUE EXCEEDS T HE LOWER TROPI) LIMITOF LINEARI TY VERIFICATION ES TABLISHED BY THE LABORATORY. An elevated troponin value alone is not sufficient todi agnose a myocardial infa rction. Rather, the patient'sclinic al presentation (h istory, physical exam) and ECGshould be used in conj unction with troponin in the diagnostic evaluation of s uspected myocardial infa rction. Aserial samplin g protocol is recommended to facilitate theidentificati on of temporal change s in troponin levelscharacter istic of [place]. BASIC METABOLIC [id number] 06:36:00 Test Item Value Reference Range Interpretation Comments SODIUM (test code = 136.0 mmol/L 133-144 N NA) POTASSIUM (test code 3.9 mmol/L 3.5-5.1 N = K) CHLORIDE (test code 103 mmol/L 95-105 N = CL) CARBON DIOXIDE (test 30 mmol/L 21-32 N code = CO2) ANION GAP (test code 3.0 GAP calc 4.0-15.0 L = GAP) GLUCOSE (test code = 105 MG/DL 70-110 N GLU) BLOOD UREA NITROGEN 13 MG/DL 7-18 N (test code = BUN) CREATININE (test 0.74 MG/DL 0.55-1.30 N Results may be code = CREAT) depressed if patient is takingN-Acetylc yste ine (NAC) and Metamizole (Dipyrone). CALCIUM (test code = 8.8 MG/DL 8.5-10.1 N CA) INDEX HEMOLYSIS 2 TRACE 10-25 1 NORMAL (test code = MG Index/DL HEMINDEX) INDEX ICTERIC (test 1 NORMAL <2 MG 1 NORMAL code = ICTINDEX) Index/DL INDEX LIPEMIA (test 1 NORMAL <50 MG 1 NORMAL code = LIPINDEX) Index/DL [id number] 06:36:00 Test Item Value Reference Range Interpretation Comments TROPONIN-I (test code = TROPI) NG/ML 0.000-0.045 - XR CHEST 1 [id number] 06:23:00 FAX: Andres Tiwari DO [phone] [place]: St: PRE Patient Name: CECE ROBLERO Unit No: [id number] EXAMS: CPT CODE: [id number] XR CHEST 1 V 30292 DICTATION LOCATION: H48 HISTORY: Female, 84 years of age with chills EXAM: CHEST X-RAY, ONE VIEW COMPARISON: 07/09/2019 COMMENT: Frontal view of the chest is provided. Calcified plaque seen in the aorta. No focal infiltrate, consolidation, mass lesion, or effusion is seen. Cardiac silhouette is enlarged. No acute bony abnormalities. IMPRESSION: Cardiomegaly. No acute infiltrate or effusion. at 0623 Reported and signed by: Denise Fenton MD CC: Andres Tiwari DO Dictated Date/Time: 09/13/2019 (622)Technologist: Danyell Peter Transcribed Date/Time: 09/13/2019 (622) By: Alisa Orig Print D/T: S: 09/13/2019 (625) TAMY Pereira NAME: [id number] PHYS: Andres Singh, [place] [address] : 1935 AGE: 84 SEX: F LOC: [facility] PHONE #:[phone] EXAM DATE: 09/13/2019 STATUS: PRE ER FAX #: [phone] NO: DC Dt: PAGE 1 Signed ReportCBC W/AUTO [id number] 06:21:00 Test Item Value Reference Range Interpretation Comments WHITE BLOOD CELL (test code = 5.5 K/mm3 4.1-12.1 N WBC) RED BLOOD CELL (test code = RBC) 4.45 M/mm3 3.8-5.5 N HEMOGLOBIN (test code = HGB) 13.0 G/DL 10.6-15.8 N HEMATOCRIT (test code = HCT) 38.7 % 31.8-47.4 N MEAN CELL VOLUME (test code = 87.0 fL 80.1-101.1 N MCV) MEAN CELL HGB (test code = MCH) 29.2 pg 25.3-35.3 N MEAN CELL HGB CONCETRATION (test 33.6 G/DL 32.7-35.1 N code = MCHC) RED CELL DISTRIBUTION WIDTH 13.8 % 12.2-16.4 N (test code = RDW) RED CELL DISTRIBUTION WIDTH 43.8 fL 36.4-46.3 N (test code = RDW-SD) PLATELET COUNT (test code = PLT) 244 K/mm3 155-337 N MEAN PLATELET VOLUME (test code 9.6 fL 6.8-11.2 N = MPV) GRANULOCYTE % (test code = GR%) 48.0 % 37.8-82.6 N IMMATURE GRANULOCYTE % (test 0.2 % 0.0-2.0 N code = IG%) LYMPHOCYTE % (test code = LY%) 35.0 % 14.1-45.4 N MONOCYTE % (test code = MO%) 8.3 % 2.5-11.7 N EOSINOPHIL % (test code = EO%) 7.4 % 0.0-6.2 H BASOPHIL % (test code = BA%) 1.1 % 0.0-2.1 N NUCLEATED RBC % (test code = 0.0 /100WBC% 0.0-1.0 N NRBC%) GRANULOCYTE # (test code = GR#) 2.65 k/mm3 2.0-13.7 N IMMATURE GRANULOCYTE # (test 0.01 K/mm3 0.00-0.03 N code = IG#) LYMPHOCYTE # (test code = LY#) 1.93 K/mm3 0.6-3.8 N MONOCYTE # (test code = MO#) 0.46 K/mm3 0.11-0.59 N EOSINOPHIL # (test code = EO#) 0.41 K/mm3 0.0-0.4 H BASOPHIL # (test code = BA#) 0.06 K/mm3 0.0-0.1 N NUCLEATED RBC # (test code = 0.00 K/mm3 0.0-0.05 N NRBC#) - CT HEAD/BRAIN W/O [id number] 06:40:00 Patient Name: CECE ROBLERO Unit No: [id number] EXAMS: CPT CODE: [id number] CT HEAD/BRAIN W/O CONT 94726 DICTATION LOCATION: 8 HISTORY: Female, 83 years of age with "shaking" and headache EXAM: CT BRAIN WITHOUT IV CONTRAST COMPARISON: None TECHNIQUE: Helical axial images were obtained through the brain without IV contrast. Coronal and sagittal reformats were performed. One or more of the following dose reduction techniques were used: Automated exposure control; adjustment of the mA and/or kV according to the patient size; and/or use of iterative reconstruction technique. FINDINGS: Chronic encephalomalacia noted in right anteromedial parietal lobe consistent with old infarction.There is no acute intra-axial or extra-axial hemorrhage, mass, mass effect or midline shift. No acute loss of the cortical mchugh/white junctions is seen. There is diffuse parenchymal atrophy consistent with patient age. Moderate periventricular hypodensities are consistent with chronic small vessel ischemic disease. No calvarial fracture is seen. Mucosal thickeningseen in the ethmoid and frontal sinuses. Mild mucosal thickening seen in maxillary and sphenoid sinus and mastoids are clear. IMPRESSION: 1. No acute intracranial hemorrhage, infarct, or mass. 2. Age-related atrophy and chronic small vessel ischemic injuries. 3. 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 4. Chronic sinusitis. at 0640 Reported and signed by: Denise Fenton MD CC: Krystal Basurto MD Dictated Date/Time:07/09/2019 (0640) Technologist: Marlon German - Agency CTDI: 47.25 DLP: 757.79 Trnscrpt: 07/09/2019 (0640) Alisa TAMY Pereira NAME: CECE ROBLERO [address] [place] [address] PHYS: [place] [address] : 1935 AGE: 83 SEX: F LOC: B.[place] PHONE #: [phone] EXAM DATE: 07/09/2019 STATUS: REG ER FAX #: [phone] RAD #: D/C DT PAGE 1 Signed Report Patient Name: CECE ROBLERO Unit No: [id number] EXAMS: CPT CODE: [id number] CT HEAD/BRAIN W/O CONT 99913 <Continued> Orig Print D/T: S: 07/09/2019 (0643) TAMY Pereira NAME: CECE ROBLERO [address] [place] [address] PHYS: TINA Virk Krystal Basurto [place] [address] : 1935 AGE: 83 SEX: F LOC: B.ERS PHONE #: [phone] EXAM DATE: 07/09/2019 STATUS: REG ER FAX #: [phone] RAD #: D/C DT PAGE 2 Signed ReportHEPATIC FUNCTION PANEL 2019-07-09 06:38:00 Test Item Value Reference Range Interpretation Comments TOTAL PROTEIN (test code 6.9 G/DL 6.4-8.2 N = PROT) ALBUMIN (test code = ALB) 3.5 G/DL 3.4-5.0 N BILIRUBIN TOTAL (test 0.25 MG/DL 0.00-1.00 N code = BILT) BILIRUBIN DIRECT (test 0.12 MG/DL 0.00-0.30 N code = BILD) BILIRUBIN INDIRECT (test 0.13 MG/DL 0.2-1.3 L code = BILIND) SGOT/AST (test code = 15 Unit/L 15-37 N AST) SGPT/ALT (test code = 15 Unit/L 12-78 N ALT) ALKALINE PHOSPHATASE 124 Unit/L 45-117 H TOTAL (test code = ALKP) INDEX HEMOLYSIS (test 1 NORMAL <10 MG 1 NORMAL code = HEMINDEX) Index/DL INDEX ICTERIC (test code 1 NORMAL <2 MG 1 NORMAL = ICTINDEX) Index/DL INDEX LIPEMIA (test code 1 NORMAL <50 MG 1 NORMAL = LIPINDEX) Index/DL [id number] 06:38:00 Test Item Value Reference Range Interpretation Comments TROPONIN-I < 0.015 NG/ML 0.000-0.045 N INTERPRET WITH CAUTION, THIS (test code = VALUE EXCEEDS T HE LOWER TROPI) LIMITOF LINEARI TY VERIFICATION ES TABLISHED BY THE LABORATORY. An elevated troponin value alone is not sufficient todi agnose a myocardial infa rction. Rather, the patient'sclinic al presentation (h istory, physical exam) and ECGshould be used in conj unction with troponin in the diagnostic evaluation of s uspected myocardial infa rction. Aserial samplin g protocol is recommended to facilitate theidentificati on of temporal change s in troponin levelscharacter istic of [place]. HEPATIC FUNCTION [id number] 06:35:00 Test Item Value Reference Range Interpretation Comments TOTAL PROTEIN (test code G/DL 6.4-8.2 = PROT) ALBUMIN (test code = ALB) 3.5 G/DL 3.4-5.0 N BILIRUBIN TOTAL (test MG/DL 0.00-1.00 code = BILT) BILIRUBIN DIRECT (test 0.12 MG/DL 0.00-0.30 N code = BILD) BILIRUBIN INDIRECT (test MG/DL 0.2-1.3 code = BILIND) SGOT/AST (test code = 15 Unit/L 15-37 N AST) SGPT/ALT (test code = 15 Unit/L 12-78 N ALT) ALKALINE PHOSPHATASE Unit/L 45-117 TOTAL (test code = ALKP) INDEX HEMOLYSIS (test 1 NORMAL <10 MG 1 NORMAL code = HEMINDEX) Index/DL INDEX ICTERIC (test code 1 NORMAL <2 MG 1 NORMAL = ICTINDEX) Index/DL INDEX LIPEMIA (test code 1 NORMAL <50 MG 1 NORMAL = LIPINDEX) Index/DL [id number] 06:35:00 Test Item Value Reference Range Interpretation Comments TROPONIN-I (test code = TROPI) NG/ML 0.000-0.045 CBC W/AUTO [id number] 06:33:00 Test Item Value Reference Range Interpretation Comments WHITE BLOOD CELL (test code = 5.7 K/mm3 4.1-12.1 N WBC) RED BLOOD CELL (test code = RBC) 4.38 M/mm3 3.8-5.5 N HEMOGLOBIN (test code = HGB) 12.9 G/DL 10.6-15.8 N HEMATOCRIT (test code = HCT) 38.9 % 31.8-47.4 N MEAN CELL VOLUME (test code = 88.8 fL 80.1-101.1 N MCV) MEAN CELL HGB (test code = MCH) 29.5 pg 25.3-35.3 N MEAN CELL HGB CONCETRATION (test 33.2 G/DL 32.7-35.1 N code = MCHC) RED CELL DISTRIBUTION WIDTH 13.9 % 12.2-16.4 N (test code = RDW) RED CELL DISTRIBUTION WIDTH 45.0 fL 36.4-46.3 N (test code = RDW-SD) PLATELET COUNT (test code = PLT) 281 K/mm3 155-337 N MEAN PLATELET VOLUME (test code 9.7 fL 6.8-11.2 N = MPV) GRANULOCYTE % (test code = GR%) 42.0 % 37.8-82.6 N IMMATURE GRANULOCYTE % (test 0.0 % 0.0-2.0 N code = IG%) LYMPHOCYTE % (test code = LY%) 41.5 % 14.1-45.4 N MONOCYTE % (test code = MO%) 7.7 % 2.5-11.7 N EOSINOPHIL % (test code = EO%) 7.7 % 0.0-6.2 H BASOPHIL % (test code = BA%) 1.1 % 0.0-2.1 N NUCLEATED RBC % (test code = 0.0 /100WBC% 0.0-1.0 N NRBC%) GRANULOCYTE # (test code = GR#) 2.38 k/mm3 2.0-13.7 N IMMATURE GRANULOCYTE # (test 0.00 K/mm3 0.00-0.03 N code = IG#) LYMPHOCYTE # (test code = LY#) 2.36 K/mm3 0.6-3.8 N MONOCYTE # (test code = MO#) 0.44 K/mm3 0.11-0.59 N EOSINOPHIL # (test code = EO#) 0.44 K/mm3 0.0-0.4 H BASOPHIL # (test code = BA#) 0.06 K/mm3 0.0-0.1 N NUCLEATED RBC # (test code = 0.00 K/mm3 0.0-0.05 N NRBC#) UA RFLX MICR CULT IF [id number] 06:22:00 Test Item Value Reference Range Interpretation Comments UA COLOR (test code = STRAW DESCRIPT YELLOW COLU) UA APPEARANCE (test code CLEAR DESCRIPT CLEAR = APPU) UA GLUCOSE DIPSTICK (test NEGATIVE (0) mg/dL (NEG) 0 code = DGLUU) UA BILIRUBIN DIPSTICK NEGATIVE (0) mg/dL (NEG) 0 (test code = BILU) UA KETONE DIPSTICK (test 0 (NEG) mg/dL (NEG) 0 code = KETU) UA SPECIFIC GRAVITY (test 1.006 SG 1.001-1.035 code = SGU) UA BLOOD DIPSTICK (test 0.06-0.10 (1+) mg/DL (NEG) 0 A code = RUBY) UA PH DIPSTICK (test code 6.0 pH UNITS 4.6-8.0 = JORGE ALBERTO) UA PROTEIN DIPSTICK (test NEGATIVE (0) mg/dL <30 (1+) code = PROU) UA UROBILINIOGEN DIPSTICK NORMAL (0) mg/dL <2.0 (1+) (test code = URO) UA NITRITE DIPSTICK (test NEGATIVE (0) SCREEN NEG code = LENARD) UA LEUKOCYTE ESTERASE NEGATIVE (0) (NEG) 0 DIPSTICK (test code = Leuk/mcL LEUU) UA COMMENT (test code = CLEAN CATCH SPEC SpecComment COMU) Notes UA WBC (test code = WBCU) 0-3 #WBC/HPF 0-3 UA RBC (test code = RBCU) 0-3 #RBC/HPF 0-3 UA MUCUS (test code = RARE /LPF NONE MUCU) UA CULTURE NEEDED? (test Crit NOTmet CULT-N/A Cult byWBC code = UACULT) Criteria Indication for culture: Dysuria/FrequencyUA RFLX MICR CULT IF INDICATED 2019-07-09 06:21:00 Test Item Value Reference Range Interpretation Comments UA COLOR (test code = STRAW DESCRIPT YELLOW COLU) UA APPEARANCE (test code CLEAR DESCRIPT CLEAR = APPU) UA GLUCOSE DIPSTICK (test NEGATIVE (0) mg/dL (NEG) 0 code = DGLUU) UA BILIRUBIN DIPSTICK NEGATIVE (0) mg/dL (NEG) 0 (test code = BILU) UA KETONE DIPSTICK (test 0 (NEG) mg/dL (NEG) 0 code = KETU) UA SPECIFIC GRAVITY (test 1.006 SG 1.001-1.035 code = SGU) UA BLOOD DIPSTICK (test 0.06-0.10 (1+) mg/DL (NEG) 0 A code = RUBY) UA PH DIPSTICK (test code 6.0 pH UNITS 4.6-8.0 = JORGE ALBERTO) UA PROTEIN DIPSTICK (test NEGATIVE (0) mg/dL <30 (1+) code = PROU) UA UROBILINIOGEN DIPSTICK NORMAL (0) mg/dL <2.0 (1+) (test code = URO) UA NITRITE DIPSTICK (test NEGATIVE (0) SCREEN NEG code = LENARD) UA LEUKOCYTE ESTERASE NEGATIVE (0) (NEG) 0 DIPSTICK (test code = Leuk/mcL LEUU) UA RBC (test code = RBCU) #RBC/HPF 0-3 Indication for culture: Dysuria/Frequency- XR CHEST 1 [id number] 06:16:00 FAX: Kurtis Garg MD [place]: E St: REG Patient Name: CECE ROBLERO Unit No: [id number] EXAMS: CPT CODE: [id number] XR CHEST 1 V 79355 DICTATION LOCATION: H48 HISTORY: Female, 83 years of age with dysuria, CODE SEPSIS EXAM: CHEST X-RAY, ONE VIEW COMPARISON: None COMMENT: Frontal view of the chest is provided.Calcified plaque seen in the aorta. No focal infiltrate, consolidation, mass lesion, oreffusion is seen. Cardiac silhouette is within normal limits. No acute bony abnormalities. IMPRESSION: No acute cardiopulmonary disease. at 0616 Reported and signed by: Denise Fenton MD CC: Kurtis Sow MD Dictated Date/Time: 07/09/2019 (06)Technologist: Yao Pineda Transcribed Date/Time:07/09/2019 (0616) By: Alisa Orig Print D/T: S: 07/09/2019 (0619) TAMY Pereira NAME: CECE ROBLERO [address] [place] [address] PHYS: Kurtis Bennett, [place] [address] : [birth year] AGE: 83 SEX: F LOC: [place] PHONE #: [phone] EXAM DATE: 07/09/2019 STATUS: REG ER FAX #: [phone] RAD NO: DC Dt: PAGE 1 Signed ReportLACTIC ACID POC 2019-07-09 06:10:00 Test Item Value Reference Range Interpretation Comments LACTIC ACID POC (test code = 0.83 MMOL/L i 0.40-2.00 N LACTP) CHEMISTRY 7 [id number] 06:10:00 Test Item Value Reference Range Interpretation Comments IONIZED CALCIUM (test code = CAIABG) mmol/L 1.13-1.32 ISTAT-TCO2 VENOUS (test code = MMOL/L 21-32 N TCO2VP) ISTAT-SODIUM (test code = NAP) MMOL/L 135-148 ISTAT-POTASSIUM (test code = KP) MMOL/L 3.5-5.9 ISTAT-CHLORIDE (test code = CLP) MMOL/L 98-106 ISTAT-ANION GAP (test code = GAPP) MEQ/L 10-20 ISTAT-GLUCOSE (test code = GLUP) MG/DL 70-119 N ISTAT-BUN (test code = BUNP) MG/DL 8-28 N BEDSIDE CREATININE (test code = MG/DL 0.6-1.2 N CREATBED) GLOMERULAR FILTRATION RATE POC (test 80 32-75 H code = GFRBED) CHEMISTRY 7 [id number] 06:10:00 Test Item Value Reference Range Interpretation Comments IONIZED CALCIUM (test 1.18 mmol/L 1.13-1.32 N code = CAIABG) ISTAT-TCO2 VENOUS (test 26 MMOL/L 21-32 N code = TCO2VP) ISTAT-SAMPLE SOURCE UNKNOWN SPEC TYPE Specimen (test code = SRCIST) Descript ISTAT-SODIUM (test code 141 MMOL/L 135-148 N = NAP) ISTAT-POTASSIUM (test 4.1 MMOL/L 3.5-5.9 N code = KP) ISTAT-CHLORIDE (test 105 MMOL/L 98-106 N code = CLP) ISTAT-ANION GAP (test 14.0 MEQ/L 10-20 N code = GAPP) ISTAT-GLUCOSE (test code 115 MG/DL 70-119 N = GLUP) ISTAT-BUN (test code = 13 MG/DL 8-28 N BUNP) BEDSIDE CREATININE (test 0.7 MG/DL 0.6-1.2 N code = CREATBED) GLOMERULAR FILTRATION 80 32-75 H RATE POC (test code = GFRBED) CHEMISTRY 7 [id number] 11:20:00 Test Item Value Reference Range Interpretation Comments IONIZED CALCIUM (test code = CAIABG) mmol/L 1.13-1.32 ISTAT-TCO2 VENOUS (test code = MMOL/L 21-32 N TCO2VP) ISTAT-SODIUM (test code = NAP) MMOL/L 135-148 ISTAT-POTASSIUM (test code = KP) MMOL/L 3.5-5.9 ISTAT-CHLORIDE (test code = CLP) MMOL/L 98-106 ISTAT-ANION GAP (test code = GAPP) MEQ/L 10-20 ISTAT-GLUCOSE (test code = GLUP) MG/DL 70-119 N ISTAT-BUN (test code = BUNP) MG/DL 8-28 N BEDSIDE CREATININE (test code = MG/DL 0.6-1.2 L CREATBED) GLOMERULAR FILTRATION RATE POC (test 118 32-75 H code = GFRBED) CHEMISTRY 7 [id number] 11:20:00 Test Item Value Reference Range Interpretation Comments IONIZED CALCIUM (test 1.11 mmol/L 1.13-1.32 L code = CAIABG) ISTAT-TCO2 VENOUS (test 24 MMOL/L 21-32 N code = TCO2VP) ISTAT-SAMPLE SOURCE UNKNOWN SPEC TYPE Specimen (test code = SRCIST) Descript ISTAT-SODIUM (test code 140 MMOL/L 135-148 N = NAP) ISTAT-POTASSIUM (test 3.6 MMOL/L 3.5-5.9 N code = KP) ISTAT-CHLORIDE (test 107 MMOL/L 98-106 H code = CLP) ISTAT-ANION GAP (test 14.0 MEQ/L 10-20 N code = GAPP) ISTAT-GLUCOSE (test code 103 MG/DL 70-119 N = GLUP) ISTAT-BUN (test code = 20 MG/DL 8-28 N BUNP) BEDSIDE CREATININE (test 0.5 MG/DL 0.6-1.2 L code = CREATBED) GLOMERULAR FILTRATION 118 32-75 H RATE POC (test code = GFRBED) URINALYSIS [id number] 08:48:00 Test Item Value Reference Range Interpretation Comments UA COLOR (test code = STRAW DESCRIPT YELLOW COLU) UA APPEARANCE (test code CLEAR DESCRIPT CLEAR = APPU) UA GLUCOSE DIPSTICK (test NEGATIVE (0) mg/dL (NEG) 0 code = DGLUU) UA BILIRUBIN DIPSTICK NEGATIVE (0) mg/dL (NEG) 0 (test code = BILU) UA KETONE DIPSTICK (test 0 (NEG) mg/dL (NEG) 0 code = KETU) UA SPECIFIC GRAVITY (test 1.006 SG 1.001-1.035 code = SGU) UA BLOOD DIPSTICK (test 0.06-0.10 (1+) mg/DL (NEG) 0 A code = RUBY) UA PH DIPSTICK (test code 7.0 pH UNITS 4.6-8.0 = JORGE ALBERTO) UA PROTEIN DIPSTICK (test NEGATIVE (0) mg/dL <30 (1+) code = PROU) UA UROBILINIOGEN DIPSTICK NORMAL (0) mg/dL <2.0 (1+) (test code = URO) UA NITRITE DIPSTICK (test NEGATIVE (0) SCREEN NEG code = LENARD) UA LEUKOCYTE ESTERASE NEGATIVE (0) (NEG) 0 DIPSTICK (test code = Leuk/mcL LEUU) UA WBC (test code = WBCU) 0-3 #WBC/HPF 0-3 UA RBC (test code = RBCU) 0-3 #RBC/HPF 0-3 UA SQUAMOUS CELLS (test RARE >0 /HPF NONE-SQepi code = SQU) UA MUCUS (test code = RARE /LPF NONE MUCU) URINALYSIS [id number] 15:29:00 Test Item Value Reference Range Interpretation Comments UA COLOR (test code = YELLOW DESCRIPT YELLOW COLU) UA APPEARANCE (test code CLEAR DESCRIPT CLEAR = APPU) UA GLUCOSE DIPSTICK (test NEGATIVE (0) mg/dL (NEG) 0 code = DGLUU) UA BILIRUBIN DIPSTICK NEGATIVE (0) mg/dL (NEG) 0 (test code = BILU) UA KETONE DIPSTICK (test 1+ (5-15 mg/dL) (NEG) 0 A code = KETU) mg/dL UA SPECIFIC GRAVITY (test 1.016 SG 1.001-1.035 code = SGU) UA BLOOD DIPSTICK (test 0.20-0.50 (2+) mg/DL (NEG) 0 A code = RUBY) UA PH DIPSTICK (test code 6.0 pH UNITS 4.6-8.0 = JORGE ALBERTO) UA PROTEIN DIPSTICK (test NEGATIVE (0) mg/dL <30 (1+) code = PROU) UA UROBILINIOGEN DIPSTICK NORMAL (0) mg/dL <2.0 (1+) (test code = URO) UA NITRITE DIPSTICK (test POSITIVE SCREEN NEG A code = LENARD) UA LEUKOCYTE ESTERASE 500 (3+) Leuk/mcL (NEG) 0 A DIPSTICK (test code = LEUU) UA WBC (test code = WBCU) 50-100 #WBC/HPF 0-3 A UA RBC (test code = RBCU) 5-10 #RBC/HPF 0-3 A UA BACTERIA (test code = TRACE >0 /HPF NONE-FEW BACU) UA SQUAMOUS CELLS (test RARE >0 /HPF NONE-SQepi code = SQU) B-TYPE NATRIURETIC [id number] 14:37:00 Test Item Value Reference Range Interpretation Comments B-TYPE NATRIURETIC PEPTIDE (test 45.00 PG/ML 0.00-100.00 N code = BNP) PT AND [id number] 13:25:00 Test Item Value Reference Interpretation Comments Range PT PATIENT (test 11.5 SECONDS 9.4-12.5 N code = PTP) INTERNATIONAL 1.02 INR 0.88-1.13 N NORMAL RATIO (test Unit --------- code = INR) ---------Therap eutic range for INR i s dependent upon the situation.2.0-3 .0 Prophylaxis / v enous thromboembolism , Treatment of DVT, Acute myocardia l infarction stro ke prevention, Systemic emboli sm prevention in fibrillation3.0 -4.5 AMI recurrence prev ention, Systemic emboli sm prevention in p rosthetic heart 3.0-5.4 A [place] mortality reduc tion THROMBOPLASTIN TIME 29.9 SECONDS 24-37.7 N THERAPEU TIC RANGE FOR PARTIAL (test code UNFRACTIO NATED HEPARIN = = PTT) 50.5-83.6 SEC T his test is not recommen ded to monitor low molecularweight heparin or danaparoid. Order LMWH test COLLECTION THROUGH LINES THAT HAVE BEEN PREVIOUSLY FLUS HEDWITH HEPARIN SHOULD BE AVOIDED DUE TO POSSIBLE HEPARINCONTAMIN ATION - XR CHEST 1 [id number] 13:25:00 FAX: Tasia Paula MD,[place] [phone] [place]: E St: REG Patient Name: CECE VENTURA Unit No: [id number] EXAMS: CPT CODE: [id number] XR CHEST 1 V 51448 Location: T18 CHEST X-RAY: Conducted on 01/25/19, AP frontal projection CLINICAL HISTORY: Emergency room presentation. Alteration in mental status COMPARISON EXAMS: 10/25/18 chest x-ray exam FINDINGS: Heart, lungs, and mediastinal structures are within normal limits. No evolving process or pleural based finding. No active CHF or pneumonia. IMPRESSION: No acute finding at 4107 Reported and signed by: Karie Hart M.D. CC: Nj Paula MD Dictated Date/Time: 01/25/2019 (1077)Technologist: Peg Vogel Transcribed Date/Time: 01/25/2019 (6398) By: [email or web address] Orig Print D/T: S: 01/25/2019 (2229) TAMY Pereira NAME: CECE VENTURA [address] [place] [address] PHYS: ELIO Paula MD,Nj Pereira, [place] [address] : 1935 AGE: 83 SEX: F LOC: [place] PHONE #: [phone] EXAM DATE: 01/25/2019 STATUS: REG ER FAX #: [phone] RAD NO: DC Dt: PAGE 1 Signed Report- CT HEAD/BRAIN W/O [id number] 13:19:00 Patient Name: CECE VENTURA Unit No: [id number] EXAMS: CPT CODE: [id number] CT HEAD/BRAIN W/O CONT 99826 CT HEAD WITHOUT CONTRAST. HISTORY: AMS COMPARISON: MRI brain 04/19/[address] head 04/19/18. TECHNIQUE: Axial CT images of the head were obtained with coronal and/or sagittal reformatted views. Automated exposure control, iterative r econstruction technique, and/or adjustment of mA and/or kV according to patient's size was utilized for radiation dose reduction. IV CONTRAST: None. Location: U19. FINDINGS: Mild amount of periventricular and deep white matter hypodensities are seen, these are most commonly associated with chronic, microvascular ischemic changes. Encep halomalacia related to chronic infarct noted within the right parietal lobe. Mild atrophy is noted. Atherosclerotic calcifications affect the carotid siphons. No other intracranial abnormalities such as hemorrhage, mass, mass effect, hydrocephalus, midline shift, extra-axial fluid collection or secondary signs of an acute infarct are noted. The calvarium and skull base are intact. Mild thickening of the ethmoid sinuses. The mastoid air cells are clear. IMPRESSION: No evidence of acute intracranial abnormality. Mild chronic microvascular ischemic changes and atrophy. Ch ronic infarct within the right parietal lobe. at 1319 Reported and signed by: Ck Gamez MD CC: Nj Paula MD Dictated Date/Time: 01/25/2019 (5410) Technologist: Alana Henson CTDI: 46.51 DLP: 663.06 Trnscrpt: 01/25/2019 (2298) [email or web address] TAMY Pereira NAME: ZACHARY RO[address] PHYS: ELIO Paula MD,[place] [id number] : 1935 AGE: 83 SEX: F LOC: [place]RA PHONE #: [phone] EXAM DATE: 01/25/2019 STATUS: REG ER FAX #: [phone] RAD #: D/C DT PAGE 1 Signed Report Patient Name: CECE VENTURA Unit No: [id number] EXAMS: CPT CODE: [id number] CT HEAD/BRAIN W/O CONT 13394 <Continued> Orig Print D/T: S: 01/25/2019 (7829) TAMY Pereira NAME: ZACHARY [address] PHYS: [place] [address] : 1935 AGE: 83 SEX: F LOC: [place] PHONE #: [phone] EXAM DATE: 01/25/2019 STATUS: REG ER FAX #: [phone] RAD #: D/C DT PAGE 2 Signed ReportBASIC METABOLIC [id number] 13:14:00 Test Item Value Reference Range Interpretation Comments SODIUM (test code = 142.0 mmol/L 133-144 N NA) POTASSIUM (test code 3.8 mmol/L 3.5-5.1 N = K) CHLORIDE (test code 110 mmol/L 95-105 H = CL) CARBON DIOXIDE (test 28 mmol/L 21-32 N code = CO2) ANION GAP (test code 4.0 GAP calc 4.0-15.0 N = GAP) GLUCOSE (test code = 92 MG/DL 70-110 N GLU) BLOOD UREA NITROGEN 17 MG/DL 7-18 N (test code = BUN) CREATININE (test 0.67 MG/DL 0.55-1.30 N Results may be code = CREAT) depressed if patient is takingN-Acetylc yste ine (NAC) and Metamizole (Dipyrone). CALCIUM (test code = 8.1 MG/DL 8.5-10.1 L CA) INDEX HEMOLYSIS 1 NORMAL <10 MG 1 NORMAL (test code = Index/DL HEMINDEX) INDEX ICTERIC (test 1 NORMAL <2 MG 1 NORMAL code = ICTINDEX) Index/DL INDEX LIPEMIA (test 1 NORMAL <50 MG 1 NORMAL code = LIPINDEX) Index/DL [id number] 13:14:00 Test Item Value Reference Range Interpretation Comments MAGNESIUM (test code = MAG) 2.1 MG/DL 1.6-2.6 N [id number] 13:14:00 Test Item Value Reference Range Interpretation Comments TROPONIN-I < 0.015 NG/ML 0.000-0.045 An elevated tr oponin value (test code = alone is not darden fficient TROPI) todiagnose a my ocardial infarction. Rat her, the patient'sclinic al presentation (h istory, physical exam) and ECGshould be used in conj unction with troponin in the diagnostic evaluation of s uspected myocardial infa rction. Aserial samplin g protocol is recommended to facilitate theidentificati on of temporal change s in [facility]. CBC W/AUTO [id number] 13:13:00 Test Item Value Reference Range Interpretation Comments WHITE BLOOD CELL (test code = 3.8 K/mm3 4.1-12.1 L WBC) RED BLOOD CELL (test code = RBC) 4.47 M/mm3 3.8-5.5 N HEMOGLOBIN (test code = HGB) 12.9 G/DL 10.6-15.8 N HEMATOCRIT (test code = HCT) 39.4 % 31.8-47.4 N MEAN CELL VOLUME (test code = 88.1 fL 80.1-101.1 N MCV) MEAN CELL HGB (test code = MCH) 28.9 pg 25.3-35.3 N MEAN CELL HGB CONCETRATION (test 32.7 G/DL 32.7-35.1 N code = MCHC) RED CELL DISTRIBUTION WIDTH 13.4 % 12.2-16.4 N (test code = RDW) RED CELL DISTRIBUTION WIDTH 43.6 fL 36.4-46.3 N (test code = RDW-SD) PLATELET COUNT (test code = PLT) 278 K/mm3 155-337 N MEAN PLATELET VOLUME (test code 9.5 fL 6.8-11.2 N = MPV) GRANULOCYTE % (test code = GR%) 49.0 % 37.8-82.6 N IMMATURE GRANULOCYTE % (test 0.3 % 0.0-2.0 N code = IG%) LYMPHOCYTE % (test code = LY%) 36.8 % 14.1-45.4 N MONOCYTE % (test code = MO%) 7.6 % 2.5-11.7 N EOSINOPHIL % (test code = EO%) 5.0 % 0.0-6.2 N BASOPHIL % (test code = BA%) 1.3 % 0.0-2.1 N NUCLEATED RBC % (test code = 0.0 /100WBC% 0.0-1.0 N NRBC%) GRANULOCYTE # (test code = GR#) 1.88 k/mm3 2.0-13.7 L IMMATURE GRANULOCYTE # (test 0.01 K/mm3 0.00-0.03 N code = IG#) LYMPHOCYTE # (test code = LY#) 1.41 K/mm3 0.6-3.8 N MONOCYTE # (test code = MO#) 0.29 K/mm3 0.11-0.59 N EOSINOPHIL # (test code = EO#) 0.19 K/mm3 0.0-0.4 N BASOPHIL # (test code = BA#) 0.05 K/mm3 0.0-0.1 N NUCLEATED RBC # (test code = 0.00 K/mm3 0.0-0.05 N NRBC#) BASIC METABOLIC [id number] 13:09:00 Test Item Value Reference Range Interpretation Comments SODIUM (test code = 142.0 mmol/L 133-144 N NA) POTASSIUM (test code 3.8 mmol/L 3.5-5.1 N = K) CHLORIDE (test code 110 mmol/L 95-105 H = CL) CARBON DIOXIDE (test 28 mmol/L 21-32 N code = CO2) ANION GAP (test code 4.0 GAP calc 4.0-15.0 N = GAP) GLUCOSE (test code = 92 MG/DL 70-110 N GLU) BLOOD UREA NITROGEN 17 MG/DL 7-18 N (test code = BUN) CREATININE (test 0.67 MG/DL 0.55-1.30 N Results may be code = CREAT) depressed if patient is takingN-Acetylc yste ine (NAC) and Metamizole (Dipyrone). CALCIUM (test code = 8.1 MG/DL 8.5-10.1 L CA) INDEX HEMOLYSIS 1 NORMAL <10 MG 1 NORMAL (test code = Index/DL HEMINDEX) INDEX ICTERIC (test 1 NORMAL <2 MG 1 NORMAL code = ICTINDEX) Index/DL INDEX LIPEMIA (test 1 NORMAL <50 MG 1 NORMAL code = LIPINDEX) Index/DL [id number] 13:09:00 Test Item Value Reference Range Interpretation Comments MAGNESIUM (test code = MAG) 2.1 MG/DL 1.6-2.6 N [id number] 13:09:00 Test Item Value Reference Range Interpretation Comments TROPONIN-I (test code = TROPI) NG/ML 0.000-0.045 - NM MYOCRD SPECT R/S [id number] 15:07:00 Patient Name: CECE VENTURA Unit No: [id number] EXAMS: CPT CODE: [id number] NM MYOCRD SPECT R/S [facility] [place] [facility] [place] [id number] Pharmacologic Myocardial Perfusion Imaging Rest/Stress test; 1- day Protocol INDICATION: Diagnosis of coronary artery disease in patient with atypical chest pain Clinical history: Patient is a 83-year-old female with cardiac risk factors and atypical chest pain PROCEDURE: Pharmacological stress testing was performed with Lexiscan 0.4 mg/5 mL from a prefilled syringe that was discarded after single use. The heart rate increased appropriately during Lexiscan infusion. Following Lexiscan injection and saline flush, the patient was injected with 31.8 mCI of sestamibi and stress gated tomographic imaging was performed. Prior, resting imaging was also performed following the injection of 14.5 mCI of Sestamibi. FINDINGS: The EKG portion of the stress test shows no acute ST changes. Overall quality of the study is fair. The left ventricle is a small cavity. On the raw images, there is no motion artifact. There is significant amount of gut uptake noted on both stress and rest images. Stress: The stress SPECT images demonstrate homogenous tracer distribution throughout the myocardium. The gated stress SPECT imaging reveals normal myocardial thickening and wall motion. The calculated left ventricle ejection fraction of 67%. Rest: The rest SPECT images again demonstrate homogenous tracer distribution throughout the myocardium. In comparing the stress and rest images, there is no reversible ischemia. There is no transient ischemicdilatation, calculated TID is 0.87 IMPRESSION: 1. Normal myocardial perfusion imaging stress test 2. No reversible ischemia 3. Normal left ventricular systolic function, calculated EF 67% on stress imaging [facility] Lakisha NAME: [facility] PHYS: Brijesh Hager MD [address] [place] [address] BLVD : 1935 AGE: 83 SEX: [place] [address] LOC: B.166 W PHONE #: [phone] EXAM DATE: 10/27/2018 STATUS: ADM IN FAX #: [phone] RAD NO: DC Dt: PAGE 1 Signed Report (CONTINUED) ------ Patient Name: CECE VENTURA Unit No: [id number] EXAMS: CPT CODE: [id number] NM MYOCRD SPECT R/S MULT 29661 <Continued> at 9850 Reported and signed by: Brijesh Chavez MD Nuclear Medicine Cardiology exams performed on dual head cameras with appropriate software for processingand reporting. CC: Brijesh Chavez MD; Jacques Araujo MD [facility] NAME: [facility] PHYS: Brijesh Hager MD [address] [place], [place] [address]VD : 1935 AGE: 83 SEX: Izaiah [place], [place] [address] LOC: BGaby166W PHONE #: [phone] EXAM DATE: 10/27/2018 STATUS: ADM IN FAX #: [phone] RAD NO: DC Dt: PAGE 2 Signed Report Patient Name: CECE VENTURA Unit No: [id number] EXAMS: CPT CODE: [id number] NM MYOCRD SPECT R/S MULT 82103 <Continued> Technologist: HARJEET LESLIE. MODESTA; Narendra Mccabe Transcribed Date/Time: 10/27/2018 (9445) Sully VoraRM20 Orig Print D/T: S: 10/27/2018 (4098) TAMY Pereira NAME: [facility] PHYS: Mee Hager [address] [place] [address] BLVD : 1935 AGE: 83 SEX: Izaiah [place], [place] [address] LOC: B.166 W PHONE #: [phone] EXAMDATE: 10/27/2018 STATUS: ADM IN FAX #: [phone] RAD NO: DC Dt: PAGE 3 Signed ReportLIPID PROFILE (CORONARY RISK)2018-10-25 23:36:00 Test Item Value Reference Interpretation Comments Range TRIGLYCERIDES (test 242 MG/DL 0-150 H HIGH RIS K TRIGLYCERIDE code = TRIG) 200-499 MG/DLRe ference intervals provi ded by The National CholesterolEduc ation Program Adult T reatment Panel III (NCEP -ATP III).Results ma y be depressed if pa toribio is takingN-Acetylc ysteine (NAC) and Metam izole (Dipyrone). CHOLESTEROL (test 207 MG/DL 133-200 H CHOLESTERO L REFERENCE code = CHOL) RANGE: AGE: MODERATE RISK HIGH RISK 20-29 206-227 MG/DL >2 27 MG/DL 30-39 228 -247 MG/DL >247 MG/ DL 40 & OVER 248-268 MG/DL >268 MG/DL CHOLESTEROL/HDL 4.81 RATIO >0 REFERENCE R ALIREZA: RATIO (test code = MALE FEMALE CHOLHDL) 1/2 AVG RISK 3.43 3.27 AVG RISK 4.9 7 4.44 2X AV G RISK 9.55 7.05 3X AVG RISK 23.39 11.04 HDL CHOLESTEROL 43 MG/DL 40-59 N Results mayb e depressed (test code = HDL) if patient is taking Metamizole(Dipy enrico). NON-HDL CHOLESTEROL 164 mg/dL <130 H Patients with CHD or CHD (test code = NHDL) risk LD L: <70 mg/dL nonHDL: <100 mg/dLPatients w ith 2+ risk factors LDL: <130 mg/dL no nHDL: <160 mg/dLPatie nts with 0-1 risk factor s LDL: <160 mg/dL nonHDL: <190 mg/dL LIPOPROTEIN LDL 116 MG/DL 0-129 N (test code = LDL) LDL/HDL (test code 2.69 Ratio 1.48-3.22 Avg N LDL/HDL RISK = LDL/HDL) ASSESSMENT1.47 One-half averag e3.22 Average5.03 Two times average6. [address] rage INDEX HEMOLYSIS 1 NORMAL <10 1 NORMAL (test code = MG Index/DL HEMINDEX) INDEX ICTERIC (test 1 NORMAL <2 1 NORMAL code = ICTINDEX) MG Index/DL INDEX LIPEMIA (test 1 NORMAL <50 1 NORMAL code = LIPINDEX) MG Index/DL [id number] 23:15:00 Test Item Value Reference Range Interpretation Comments TROPONIN-I 0.052 NG/ML 0.000-0.045 HH Critical values after the (test code = first occurrenc e are excluded TROPI) fromcall docume ntation requirements fo r this analyte due to thepatie nt diagnosis or therapy prot ocols.An elevated tropon in value alone is not sufficie nt todiagnose a myocardial in farction. Rather, the pat ient'sclinical presentation (h istory, physical exam) and ECGshould be used in conj unction with troponin in the diagnostic evaluation of s uspected myocardial infa rction. Aserial samplin g protocol is recommended to facilitate theidentificati on of temporal changes in trop onin levelscharacter istic of [place]. [id number] 19:39:00 Test Item Value Reference Range Interpretation Comments TROPONIN-I 0.053 NG/ML 0.000-0.045 HH Critical values after the (test code = first occurrenc e are excluded TROPI) fromcall docume ntation requirements fo r this analyte due to thepatie nt diagnosis or therapy prot ocols.An elevated tropon in value alone is not sufficie nt todiagnose a myocardial in farction. Rather, the pat ient'sclinical presentation (h istory, physical exam) and ECGshould be used in conj unction with troponin in the diagnostic evaluation of s uspected myocardial infa rction. Aserial samplin g protocol is recommended to facilitate theidentificati on of temporal changes in trop onin levelscharacter istic of [place]. - CT ABD PELVIS [id number] 16:17:00 Patient Name: CECE VENTURA Unit No: [id number] EXAMS: CPT CODE: [id number] CT ABD PELVIS W/CONT 98897 Location: T 18 CT of the abdomen and CT of the pelvis , 10/25/18 CLINICAL HISTORY: Abdominal pain and loose stools. Patient presenting to the ER. COMPARISON EXAM: None of the abdomen or pelvis TECHNIQUE: A CT scan ofthe abdomen and pelvis conducted scanning in the axial plane acquiring contiguous 5mm slice thickness from the diaphragms through the pubic symphysis with 75 mL of Isovue 300 injected for contrast. Patient was given enteric contrast with 2D coronal reformatted images acquired. This was acquired on CT workstation using MPR software . The examination was performed on updated helical CT scanner , utilizing low-dose radiation technique. Automatic exposure control technique was utilized to reduce radiation dose. FINDINGS: Overlying radiopaque objects due mildly obscure detail. The liver demonstrates normal size, attenuation and contour without focal masses or enlargement. The gallbladder is unremarkable. No biliary distention is seen. The spleen is normal in size without focal defects. The adrenal glands are unremarkable without masses. The pancreas demonstrates normal contour and attenuation without definite focal masses or enlargement. There is no effacement of the peripancreatic fat to suggest an inflammatory process. There areno peripancreatic fluid collections. Bowel gas pattern is non obstructed and nonspecific without pneumoperitoneum or pneumatosis. There is visualization of a fairly normal-appearing appendix without appendicitis. There is presence of diverticulosis along the sigmoid colon of moderate degree without acute diverticulitis. Scattered diverticula even seen on the left side of the colon without acute colitis. Both the abdominal aorta and IVC are unremarkable. There is no significant adenopathy within the abdomen. The kidneys demonstrate no hydronephrosis. No fluid collections are identified. The bases of the lungs are clear. [facility] Lakisha NAME: CECE VENTURA [address] [place] [address] Blvd PHYS: [place] [address] : 1935 AGE: 83 SEX: F LOC: B.ERS PHONE #: [phone] EXAM DATE: 10/25/2018 STATUS: REG ER FAX #: [phone] RAD #: D/C DT PAGE 1 Signed Report (CONTINUED) Patient Name: CECE VENTURA Unit No: [id number] EXAMS: CPT CODE: [id number] CT ABD PELVIS W/CONT 31909 <Continued> The pelvic contents are unremarkable without mass. No focal fluidcollections or adenopathy. IMPRESSION: Presence of colonic diverticulosis without acute colitis or definite acute bowel pathology. There is visualization of anormal-appearing appendix. [id number] Reported and signed by: Karie Pineda M.D. CC: Jacques Araujo MD Dictated Date/Time: 10/25/2018(1616) Technologist: Jus Romero - Agency CTDI: 6.24 DLP: 289.50 Trnscrpt: 10/25/2018 (161) [email or web address] TAMY Pereira NAME: ZACHARY RO[address] PHYS: Jacques Rivera MD [place] [address] : 1935 AGE: 83 SEX: F LOC: B.ERS PHONE #: [phone] EXAM DATE: 10/25/2018 STATUS: REG ER FAX #: [phone] RAD #: D/C DT PAGE 2 Signed Report Patient Name: CECE VENTURA Unit No: [id number] EXAMS: CPT CODE: [id number] CT ABD PELVIS W/CONT 66529 <Continued> Orig Print D/T: S: 10/25/2018 (1620) CORYRosalba LambertKennard NAME: ZACHARY RO[address] PHYS: Jacques Rivera MD [place] [address] : 1935 AGE: 83 SEX: F LOC: B.ERS PHONE #: [phone] EXAM DATE: 10/25/2018 STATUS: REG ER FAX #: [phone] RAD #: D/C DT PAGE 3 Signed Report- XR CHEST 1 [id number] 16:11:00 FAX: Jacques Haynes MD [phone] [place]: St: REG Patient Name: CECE VENTURA Unit No: [id number] EXAMS: CPT CODE: [id number] XR CHEST 1 V 36885 Location: T 18 CHESTX-RAY: AP frontal view, 10/25/18 CLINICAL HISTORY: Chest pain. ER presentation COMPARISON EXAMS: None of the chest FINDINGS: Heart, lungs, and mediastinal structures are within normal limits at 1611 Reported and signed by: Karie Pineda M.D. CC: Jacques Araujo MD Dictated Date/Time: 10/25/2018 (1611)Technologist: Robin Gaxiola Transcribed Date/Time: 10/25/2018 (1611) By: [email or web address] Orig Print D/T: S: 10/25/2018 (1615) TAMY Pereira NAME: CECE VENTURA [address] [place] [address] PHYS: Jacques Rivera MD [place], [place] [address] : 1935 AGE: 83 SEX: F LOC: BGabyERS PHONE #: [phone] EXAM DATE: 10/25/2018 STATUS: REG ER FAX #: [phone] RAD NO: DC Dt: PAGE 1 Signed ReportCOMPREHENSIVE METABOLIC [id number] 15:20:00 Test Item Value Reference Range Interpretation Comments SODIUM (test code = 138.0 mmol/L 133-144 N NA) POTASSIUM (test code 4.4 mmol/L 3.5-5.1 N = K) CHLORIDE (test code 106 mmol/L 95-105 H = CL) CARBON DIOXIDE (test 27 mmol/L 21-32 N code = CO2) ANION GAP (test code 5.0 GAP calc 4.0-15.0 N = GAP) GLUCOSE (test code = 104 MG/DL 70-110 N GLU) BLOOD UREA NITROGEN 15 MG/DL 7-18 N (test code = BUN) GLOMERULAR 98 estGFR >60 The estimated FILTRATION RATE glomerular (test code = GFR) filtration rate is computed usingpatient ra ce, age, sex, and s vanesa creatinine. If any of theneeded da ta elements are mi ssing the Laboratory can notcompute an estimation of t he glomerular filtration rate .The GFR value units = ml/min/1.73 met er squared. EstimatedGFR va lues above 60 should be interpreted as >60, not anexact number.--- DRUG DOSAGE ALERT -- - Drug dosage adjustments uti lize different calculationpara meter s. CREATININE (test 0.59 MG/DL 0.55-1.30 N Results may be code = CREAT) depressed if p atient is takingN-Acetylc ystei ne (NAC) and Metamizole (Dipyrone). TOTAL PROTEIN (test 6.3 G/DL 6.4-8.2 L code = PROT) ALBUMIN (test code = 3.0 G/DL 3.4-5.0 L ALB) ALBUMIN/GLOBULIN 0.9 RATIO 1.2-2.2 L RATIO (test code = A/G) CALCIUM (test code = 7.9 MG/DL 8.5-10.1 L CA) BILIRUBIN TOTAL 0.35 MG/DL 0.00-1.00 N (test code = BILT) BILIRUBIN DIRECT < 0.10 MG/DL 0.00-0.30 N (test code = BILD) BILIRUBIN INDIRECT CALC MAHAMED MG/DL 0.2-1.3 L (test code = BILIND) SGOT/AST (test code 28 Unit/L 15-37 N = AST) SGPT/ALT (test code 18 Unit/L 12-78 N = ALT) ALKALINE PHOSPHATASE 123 Unit/L 45-117 H TOTAL (test code = ALKP) INDEX HEMOLYSIS 4 SMALL 50-200 1 NORMAL A (test code = MG Index/DL HEMINDEX) INDEX ICTERIC (test 1 NORMAL <2 MG 1 NORMAL code = ICTINDEX) Index/DL INDEX LIPEMIA (test 1 NORMAL <50 1 NORMAL code = LIPINDEX) MG Index/DL [id number] 15:20:00 Test Item Value Reference Range Interpretation Comments TROPONIN-I 0.052 NG/ML 0.000-0.045 HH ON 10/25/18 AT 1519, (test code = B.LAB.LLC CHRISTIANSON D TO NADEEM AGEE) YOSVANY. The r eport was confirmed by re ad back protocols Y,N: Y. Critical values after th e first occurrence are excluded.An elevated tropon in value alone is not sufficie nt todiagnose a myocardial in farction. Rather, the pat ient'sclinical presentation (h istory, physical exam) and ECGshould be used in conj unction with troponin in the diagnostic evaluation of s uspected myocardial infa rction. Aserial samplin g protocol is recommended to facilitate theidentificati on of temporal changes in trop onin levelscharacter istic of [place]. B-TYPE NATRIURETIC [id number] 15:16:00 Test Item Value Reference Range Interpretation Comments B-TYPE NATRIURETIC PEPTIDE (test 30.53 PG/ML 0.00-100.00 N code = BNP) [id number] 15:14:00 Test Item Value Reference Range Interpretation Comments LIPASE (test code = LIP) 312 Unit/L 114-286 H PROCALCITONIN (PCT)2018-10-25 15:14:00 Test Item Value Reference Range Interpretation Comments PROCALCITONIN (PCT) < 0.05 NG/ML 0.00-0.10 N PROCALCI TONIN (PCT) (test code = PROCAL) NORMAL RANGE (ADULT) <0.05 NG/ML-nor mal <0.50 NG/ML-low risk of severe sepsis a nd/or septic shock >2 .00 NG/ML-high risk of severe sepsis a nd/or septic shcock Concentrations of <0.5 ng/mL do not ex clude an infection.Local ized infections (wit hout systemic signs) or a systemicinfecti on in its initial sta ges (<6 hours) can be associatedwith such low concentrations. It is recommended to retestPCT withi n 6-24 hours if concen trations <2 NG/ML. [id number] 14:55:00 Test Item Value Reference Range Interpretation Comments LIPASE (test code = LIP) 312 Unit/L 114-286 H PROCALCITONIN (PCT)2018-10-25 14:55:00 Test Item Value Reference Range Interpretation Comments PROCALCITONIN (PCT) (test code = NG/ML 0.00-0.10 PROCAL) COMPREHENSIVE METABOLIC [id number] 14:55:00 Test Item Value Reference Range Interpretation Comments SODIUM (test code = NA) 138.0 mmol/L 133-144 N POTASSIUM (test code = K) 4.4 mmol/L 3.5-5.1 N CHLORIDE (test code = CL) 106 mmol/L 95-105 H CARBON DIOXIDE (test code 27 mmol/L 21-32 N = CO2) ANION GAP (test code = 5.0 GAP calc 4.0-15.0 N GAP) GLUCOSE (test code = GLU) 104 MG/DL 70-110 N BLOOD UREA NITROGEN (test 15 MG/DL 7-18 N code = BUN) CREATININE (test code = MG/DL 0.55-1.30 CREAT) TOTAL PROTEIN (test code G/DL 6.4-8.2 = PROT) ALBUMIN (test code = ALB) 3.0 G/DL 3.4-5.0 L ALBUMIN/GLOBULIN RATIO RATIO 1.2-2.2 (test code = A/G) CALCIUM (test code = CA) 7.9 MG/DL 8.5-10.1 L BILIRUBIN TOTAL (test MG/DL 0.00-1.00 code = BILT) BILIRUBIN DIRECT (test MG/DL 0.00-0.30 code = BILD) BILIRUBIN INDIRECT (test MG/DL 0.2-1.3 code = BILIND) SGOT/AST (test code = Unit/L 15-37 AST) SGPT/ALT (test code = Unit/L 12-78 ALT) ALKALINE PHOSPHATASE Unit/L 45-117 TOTAL (test code = ALKP) INDEX HEMOLYSIS (test 4 SMALL 50-200 MG 1 NORMAL A code = HEMINDEX) Index/DL INDEX ICTERIC (test code 1 NORMAL <2 MG 1 NORMAL = ICTINDEX) Index/DL INDEX LIPEMIA (test code 1 NORMAL <50 MG 1 NORMAL = LIPINDEX) Index/DL [id number] 14:55:00 Test Item Value Reference Range Interpretation Comments TROPONIN-I (test code = TROPI) NG/ML 0.000-0.045 CBC W/AUTO [id number] 14:39:00 Test Item Value Reference Range Interpretation Comments WHITE BLOOD CELL (test code = 6.4 K/mm3 4.1-12.1 N WBC) RED BLOOD CELL (test code = RBC) 4.25 M/mm3 3.8-5.5 N HEMOGLOBIN (test code = HGB) 12.3 G/DL 10.6-15.8 N HEMATOCRIT (test code = HCT) 36.1 % 31.8-47.4 N MEAN CELL VOLUME (test code = 84.9 fL 80.1-101.1 N MCV) MEAN CELL HGB (test code = MCH) 28.9 pg 25.3-35.3 N MEAN CELL HGB CONCETRATION (test 34.1 G/DL 32.7-35.1 N code = MCHC) RED CELL DISTRIBUTION WIDTH 13.1 % 12.2-16.4 N (test code = RDW) RED CELL DISTRIBUTION WIDTH 39.9 fL 36.4-46.3 N (test code = RDW-SD) PLATELET COUNT (test code = PLT) 295 K/mm3 155-337 N MEAN PLATELET VOLUME (test code 9.7 fL 6.8-11.2 N = MPV) GRANULOCYTE % (test code = GR%) 56.1 % 37.8-82.6 N IMMATURE GRANULOCYTE % (test 0.3 % 0.0-2.0 N code = IG%) LYMPHOCYTE % (test code = LY%) 31.3 % 14.1-45.4 N MONOCYTE % (test code = MO%) 7.3 % 2.5-11.7 N EOSINOPHIL % (test code = EO%) 4.4 % 0.0-6.2 N BASOPHIL % (test code = BA%) 0.6 % 0.0-2.1 N NUCLEATED RBC % (test code = 0.0 /100WBC% 0.0-1.0 N NRBC%) GRANULOCYTE # (test code = GR#) 3.59 k/mm3 2.0-13.7 N IMMATURE GRANULOCYTE # (test 0.02 K/mm3 0.00-0.03 N code = IG#) LYMPHOCYTE # (test code = LY#) 2.00 K/mm3 0.6-3.8 N MONOCYTE # (test code = MO#) 0.47 K/mm3 0.11-0.59 N EOSINOPHIL # (test code = EO#) 0.28 K/mm3 0.0-0.4 N BASOPHIL # (test code = BA#) 0.04 K/mm3 0.0-0.1 N NUCLEATED RBC # (test code = 0.00 K/mm3 0.0-0.05 N NRBC#)
[2020-09-10] MEDS ORDERED: LIDOCAINE 1% W/EPI 1:100,000 MDV 50 ML VIAL ONE (23:17)
[2020-09-10 23:31] LABS: Absolute Lymphocytes (CBC) 1.5 K/uL (0.7-4.9); Basophils % 0.7 % (0-1.3); Hematocrit 39.6 % (36.0-45.0); Lymphocytes % 21.4 % (15.3-44.8); MPV 9.1 fL (7.6-11.3); RBC Red Blood Cell Count 4.55 M/uL (3.86-4.86)
[2020-09-10 23:34] LABS: Protime INR 1.01
[2020-09-10 23:40] LABS: Potassium 3.7 mmol/L (3.5-5.1)
--- NOTE | 2020-09-10 23:54 | EDPHYS ---
Physician Documentation [facility] Name: Swetha Moreno Age: 85 yrs Sex: Female : 1935 Arrival Date: 09/10/2020 Time: 20:19 Bed 18 Private MD: ED Physician Hugh Mendiola HPI: 09/11 00:19 This 85 yrs old Female presents to ER via EMS with complaints of Fall Injury. tw4 00:19 Details of fall: The patient fell from an upright position, while standing. Onset: The tw4 symptoms/episode began/occurred today. Associated injuries: The patient sustained no obvious injury. Severity of symptoms: At their worst the symptoms were moderate, in the emergency department the symptoms are unchanged. The patient has not experienced similar symptoms in the past. Historical: - Allergies: 09/10 22:49 eggs; ll2 - Immunization history:: Adult Immunizations up to date. - Immunization history: Last tetanus immunization: unknown. - Social history:: Smoking status: Patient denies any tobacco usage or history of. ROS: 09/11 00:19 Constitutional: Negative for fever, chills, and weight loss, Eyes: Negative for injury, tw4 pain, redness, and discharge, Cardiovascular: Negative for chest pain, palpitations, and edema, Respiratory: Negative for shortness of breath, cough, wheezing, and pleuritic chest pain, Abdomen/GI: Negative for abdominal pain, nausea, vomiting, diarrhea, and constipation, Back: Negative for injury and pain, MS/Extremity: Negative for injury and deformity, Skin: Negative for injury, rash, and discoloration, Neuro: Negative for headache, weakness, numbness, tingling, and seizure. Exam: 00:19 Constitutional: This is a well developed, well nourished patient who is awake, alert, tw4 and in no acute distress. 00:19 Chest/axilla: Normal chest wall appearance and motion. Nontender with no deformity. No lesions are appreciated. Cardiovascular: Regular rate and rhythm with a normal S1 and S2. No gallops, murmurs, or rubs. Normal PMI, no JVD. No pulse deficits. Respiratory: Lungs have equal breath sounds bilaterally, clear to auscultation and percussion. No rales, rhonchi or wheezes noted. No increased work of breathing, no retractions or nasal flaring. Abdomen/GI: Soft, non-tender, with normal bowel sounds. No distension or tympany. No guarding or rebound. No evidence of tenderness throughout. Skin: Warm, dry with normal turgor. Normal color with no rashes, no lesions, and no evidence of cellulitis. MS/ Extremity: Pulses equal, no cyanosis. Neurovascular intact. Full, normal range of motion. Neuro: Awake and alert, GCS 15, oriented to person, place, time, and situation. Cranial nerves II-XII grossly intact. Motor strength 5/5 in all extremities. Sensory grossly intact. Cerebellar exam normal. Normal gait. 00:19 Head/face: Noted is a laceration(s), that is deep. Vital Signs: 09/10 20:20 BP 178 / 74; Pulse 63; Resp 17; Temp 99; Pulse Ox 98% on R/A; ll2 20:20 BP 178 / 74; Pulse 63; Resp 17; Temp 99; Pulse Ox 98% ; ll2 21:00 BP 155 / 73; Pulse 64; Resp 18; Temp 99; Pulse Ox 99% on R/A; ll2 22:10 BP 164 / 85; Pulse 68; Resp 18; Temp 98.7; Pulse Ox 99% ; ll2 23:00 BP 157 / 79; Pulse 61; Resp 20; Pulse Ox 100% ; dh4 23:49 Weight 53.2 kg; ll2 23:50 BP 157 / 79; Pulse 64; Resp 18; Temp 99; Pulse Ox 99% on R/A; Weight 23.72 kg; ll2 Fertile Coma Score: 20:35 Eye Response: spontaneous(4). Verbal Response: confused(4). Motor Response: obeys ll2 commands(6). Total: 14. Trauma Score (Adult): 20:30 Eye Response: spontaneous(1); Verbal Response: confused(1); Motor Response: obeys ll2 commands(2); Systolic BP: > 89 mm Hg(4); Respiratory Rate: 10 to 29 per min(4); Marc Score: 14; Trauma Score: 12 Laceration: 09/11 03:11 Wound Repair of 10.2cm ( 4in ) subcutaneous laceration to right parietal area. Linear tw4 shaped.. Distal neuro/vascular/tendon intact. Wound prep: Moderate cleansing by nurse. Skin closed with 4 1-0 Acton using staple gun. Dressed with 4x4's, Kerlix. Patient tolerated well. MDM: 09/10 20:30 Patient medically screened. tw4 09/11 00:19 Differential diagnosis: abrasion, closed head injury, laceration. Data reviewed: vital tw4 signs, nurses notes. Data interpreted: Pulse oximetry: Interpretation: normal. Counseling: I had a detailed discussion with the patient and/or guardian regarding: the historical points, exam findings, and any diagnostic results supporting the discharge/admit diagnosis. ED course: Pt will need higher level of care secondary to subarachnoid hemorrhage. 00:24 Data reviewed: lab test result(s), CBC, electrolytes, radiologic studies, CT scan. ED tw4 course: D/W Dr Contrersa from neurosurgery who agrees to accept the patient for transfer. 09/10 23:23 Order name: CBC with Diff; Complete Time: 23:51 dm5 09/10 23:51 Interpretation: Normal except: WBC 6.9. tw4 09/10 23:23 Order name: Basic Metabolic Panel; Complete Time: 23:51 dm5 09/10 23:51 Interpretation: Normal except: CL 109; BUN 24; GFR 75. tw4 09/10 23:23 Order name: PT-INR; Complete Time: 23:51 dm5 09/10 23:52 Interpretation: Within normal limits: PT 11.9. tw4 09/10 23:23 Order name: Ptt, Activated; Complete Time: 23:51 dm5 09/10 23:52 Interpretation: Within normal limits: PTT 26.6. tw4 09/10 21:34 Order name: Head C Spine Mpr Wo Con EDMS Administered Medications: No medications were administered Disposition: 09/10/20 23:53 Transfer ordered to [facility]. Diagnosis are TRAUMATIC SUBARACHNOID HEMORRHAGE, Laceration without foreign body of scalp. - Reason for transfer: Higher level of care. - Accepting physician is DR CONTRERAS. - Condition is Stable. - Problem is new. - Symptoms have improved. Signatures: Dispatcher [employer] EDMO Hugh Mendiola MD MD tw4 Soheila Lovelace, RN RN ll2 Corrections: (The following items were deleted from the chart) 09/10 21:34 20:31 Head Brain Wo Cont+CT.RAD.BRZ ordered. EDMS EDMS 21:41 20:32 C Spine Wo Con+CT.RAD.BRZ ordered. EDMS EDMS 09/11 00:09 09/10 23:52 CORONAVIRUS+MR.LAB.BRZ ordered. EDMS EDMS 09/11 00:43 09/10 23:53 09/10/2020 23:53 Transfer ordered to [facility]. Diagnosis is ll2 TRAUMATIC SUBARACHNOID HEMORRHAGE; Laceration without foreign body of scalp. Reason for transfer: Higher level of care. Accepting physician is DR CONTRERAS. Condition is Stable. Problem is new. Symptoms have improved. tw4
--- NOTE | 2020-09-10 23:54 | ER ---
Nurse's Notes [facility] Name: Swetha Moreno Age: 85 yrs Sex: Female : 1935 Arrival Date: 09/10/2020 Time: 20:19 Bed 18 Private MD: Diagnosis: TRAUMATIC SUBARACHNOID HEMORRHAGE;Laceration without foreign body of scalp Presentation: 09/10 20:20 Acuity: NAVID 3 ll2 20:20 Chief complaint: Chief complaint: EMS states: ems toned to [facility] for pt that fell ll2 from standing position and hit back of her head. pt is AAOX2 which is normal for her stated by detention facility. pt has a 2 in lac to back of head with c-collar on neck in tact. Coronavirus screen: Client denies travel out of the [place] in the last 14 days. At this time, the client does not indicate any symptoms associated with coronavirus-19. Ebola Screen: Patient negative for fever greater than or equal to 101.5 degrees Fahrenheit, and additional compatible Ebola Virus Disease symptoms. 20:20 Method Of Arrival: EMS: [facility] ll2 20:35 Care prior to arrival: None. Mechanism of Injury: Fall from standing position. Trauma ll2 event details: Injury occurred in the [facility], Injury occurred: [facility]. 09/11 00:42 Initial Sepsis Screen: Does the patient meet any 2 criteria? No. Patient's initial ll2 sepsis screen is negative. Does the patient have a suspected source of infection? No. Patient's initial sepsis screen is negative. Risk Assessment: Do you want to hurt yourself or someone else? Patient reports no desire to harm self or others. Onset of symptoms was September 11, 2020. Triage Assessment: 09/10 20:20 General: Appears in no apparent distress. uncomfortable, Behavior is calm, appropriate ll2 for age. Pain: Complains of pain in left parietal area and right parietal area. EENT: No signs and/or symptoms were reported regarding the EENT system. Neuro: Level of Consciousness is awake, alert, confused, Oriented to person. Cardiovascular: Patient's skin is warm and dry. Respiratory: Airway is patent Respiratory effort is even, unlabored, Respiratory pattern is regular, symmetrical. GI: No signs and/or symptoms were reported involving the gastrointestinal system. : No signs and/or symptoms were reported regarding the genitourinary system. Derm: Skin is intact, is healthy with good turgor, Skin is dry, Skin is pink, warm \T\ dry. Skin temperature is hot. Musculoskeletal: Circulation, motion, and sensation intact. Range of motion: intact in all extremities. 20:20 Injury Description: Laceration sustained to scalp and right parietal area and left ll2 parietal area. Historical: - Allergies: 22:49 eggs; ll2 - Immunization history:: Adult Immunizations up to date. - Immunization history: Last tetanus immunization: unknown. - Social history:: Smoking status: Patient denies any tobacco usage or history of. Screenin:20 Abuse screen: Denies threats or abuse. Nutritional screening: No deficits noted. ll2 Tuberculosis screening: No symptoms or risk factors identified. Fall Risk IV access (20 points). Ambulatory Aid- Crutches/Cane/Walker (15 pts). Gait- Impaired (20 pts.). Mental Status- Overestimates/Forgets Limitations (15 pts.). Total Whitmore Fall Scale indicates High Risk Score (45 or more points). Fall prevention measures have been instituted. Side Rails Up X 2 Placed Close to Nursing Station. Primary Survey: 20:30 NO uncontrolled hemorrhage observed. A: The patient is alert. Airway: patent. ll2 20:30 Breathing/Chest: Respiratory pattern: regular, Respiratory effort: spontaneous. ll2 Circulation: Skin color: pink, Skin temperature: warm. Disability Alert. Exposure/Environment: There is no evidence of uncontrolled external bleeding. Obvious injury(ies) are noted at this time: 2 inch lac to back of head. Reassessment Breathing/Chest Respiratory pattern Regular Respiratory effort Spontaneous. 20:30 Reassessment Circulation Color [place] Disability Alert. ll2 09/11 00:45 Reassessment Airway Airway Patent. ll2 Assessment: 09/10 20:20 Reassessment: see triage note. ll2 21:20 Reassessment: Patient and/or family updated on plan of care and expected duration. Pain ll2 level reassessed. 22:20 Reassessment: Patient and/or family updated on plan of care and expected duration. Pain ll2 level reassessed. 22:30 Reassessment: daughter notified of need for transfer. ll2 23:30 Reassessment: Patient and/or family updated on plan of care and expected duration. Pain ll2 level reassessed. 09/11 00:43 Reassessment: pt transferred via stretcher with EMS report given to Betsy Brito EMT. ll2 Vital Signs: 09/10 20:20 BP 178 / 74; Pulse 63; Resp 17; Temp 99; Pulse Ox 98% on R/A; ll2 20:20 BP 178 / 74; Pulse 63; Resp 17; Temp 99; Pulse Ox 98% ; ll2 21:00 BP 155 / 73; Pulse 64; Resp 18; Temp 99; Pulse Ox 99% on R/A; ll2 22:10 BP 164 / 85; Pulse 68; Resp 18; Temp 98.7; Pulse Ox 99% ; ll2 23:00 BP 157 / 79; Pulse 61; Resp 20; Pulse Ox 100% ; dh4 23:49 Weight 53.2 kg; ll2 23:50 BP 157 / 79; Pulse 64; Resp 18; Temp 99; Pulse Ox 99% on R/A; Weight 23.72 kg; ll2 Marc Coma Score: 20:35 Eye Response: spontaneous(4). Verbal Response: confused(4). Motor Response: obeys ll2 commands(6). Total: 14. Trauma Score (Adult): 20:30 Eye Response: spontaneous(1); Verbal Response: confused(1); Motor Response: obeys ll2 commands(2); Systolic BP: > 89 mm Hg(4); Respiratory Rate: 10 to 29 per min(4); Macr Score: 14; Trauma Score: 12 ED Course: 20:19 Patient arrived in ED. am2 20:23 Hugh Mendiola MD is Attending Physician. tw4 20:23 Arm band placed on right wrist. ll2 20:23 Labs ordered per protocol. Drawn by ED staff. ll2 20:27 Soheila Lovelace, MIKI is Primary Nurse. ll2 20:27 Triage completed. ll2 20:30 Patient has correct armband on for positive identification. Placed in gown. Bed in low ll2 position. Call light in reach. Side rails up X2. 20:30 Pulse ox on. NIBP on. Warm blanket given. ll2 21:40 Head C Spine Mpr Wo Con In Process Unspecified. EDMS 22:39 Initiated transfer at [facility] with Merna Albrecht. Stated they were on ICU tt3 saturation but would check and see if they could arrange something. Stated she would check with the supervisor grips and call back. 22:55 Merna called back with their physician to speak with Dr. Mendiola. tt3 23:23 Initiated transfer with Bonnie Vogel at [facility]. The call was transferred tt3 to Dr. Mendiola, as Bonnie requested to connect Dr. Mendiola with their neurosurgeon. 23:29 Bonnie Vogel gave admin approval. The accepting physician is Ramesh Rodriguez. The pt tt3 is going to The Emergency Room at [facility]. Nurse to call report to . Face sheet and MOT faxed to per Bonnie's request. 09/11 00:40 Thermoregulation: warm blanket given to patient. ll2 00:41 No provider procedures requiring assistance completed. Inserted saline lock: 20 gauge ll2 in right antecubital area, using aseptic technique. ,using aseptic technique. by [facility] Patient transferred, IV remains in place. 00:41 Patient maintains SpO2 saturation greater than 95% on room air. ll2 Administered Medications: No medications were administered Intake: 09/10 20:35 PO: 0ml; Total: 0ml. ll2 Output: 20:35 Urine: 20ml (Voided); Total: 20ml. ll2 Outcome: 23:53 ER care complete, transfer ordered by . tw4 09/11 00:41 Transferred by ground EMS to [facility]. ll2 Condition: stable Instructed on the need for transfer. 00:43 Patient left the ED. ll2 00:45 Patient's length of stay in the Emergency Department was greater than 2 hours. had to ll2 initiate transfer at multiple locationsPatient's length of stay extended due to Signatures: Dispatcher [employer] EDMS Krystal Rodriguez am2 Hugh Mendiola MD MD 4 Kamlesh Piper [facility] Soheila Lovelace RN RN ll2 Jude Rodriguez tt3 Corrections: (The following items were deleted from the chart) 00:39 09/10 21:20 Reassessment: Patient and/or family updated on plan of care and expected ll2 duration. Pain level reassessed. Patient is alert, oriented x 3, equal unlabored respirations, skin warm/dry/pink. ll2 09/11 00:39 09/10 22:20 Reassessment: Patient and/or family updated on plan of care and expected ll2 duration. Pain level reassessed. Patient is alert, oriented x 3, equal unlabored respirations, skin warm/dry/pink. ll2 09/11 00:39 09/10 23:30 Reassessment: Patient and/or family updated on plan of care and expected ll2 duration. Pain level reassessed. Patient is alert, oriented x 3, equal unlabored respirations, skin warm/dry/pink. ll2
[2020-09-11 01:17] VITALS: BP 157/79
[2020-09-11 01:19] VITALS: TEMP 99; O2SAT 99
--- NOTE | 2020-09-11 11:21 | RAD REPORT ---
EXAM DESCRIPTION: Head C Spine Mpr Wo Con CLINICAL HISTORY: PAIN COMPARISON: None available TECHNIQUE: Axial CT of the head obtained from the skull apex to the skull base without contrast. Axi al CT images of the cervical spine obtained from the skull base through the thoracic inlet. Sagittal and coronal reformatted images available. FINDINGS: CT head: Linear hyperdensity in the left frontal lobe without significant mass effect or midline shift. 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 Enlargeme nt of ventricular system and sulcal spaces compatible with atrophy. Scattered areas of hypodensity th roughout the supratentorial white matter are nonspecific and may represent sequela of chronic small v essel ischemic change. The basilar cisterns are patent. Minimal mucosal thickening of the paranasal sinuses. Mastoid air cells are well aerated. No skull fra cture identified. Visualized orbits and globes are unremarkable. Carotid artery atherosclerosis. Cervical CT: Alignment of the cervical spine is maintained without evidence of subluxation. The atlantoaxial, at lantodental, and occipitoatlantal intervals are preserved. No fracture identified. Vertebral body h eight preserved. Prevertebral soft tissues are unremarkable. Mild to moderate multilevel loss of intervertebral disc height with endplate spondylosis, uncovertebr al spurring, and facet arthropathy. Spurring of the atlantodental articulation. Mild to moderate mult ilevel osseous neural foraminal narrowing. Visualized skull base is intact. No fracture of the visualized facial bones. Visualized mastoid air c ells and paranasal sinuses are well aerated. Visualized thyroid is unremarkable. No cervical lymphadenopathy. No pneumothorax in the visualized lung apices. Carotid artery atherosclerosis. Centrilobular emphysematous change. Minimal laceration/c ontusion in the posterior right scalp soft tissues. IMPRESSION: 1. Minimal hyperdensity within an anterior left frontal sulcal space likely represents a small amount of subarachnoid hemorrhage. No significant mass effect or midline shift. 2. No acute fracture or subluxation of the cervical spine. 3. Multilevel degenerative change of the cervical spine. Urgent finding reported to Dr. Mendiola at 09/10/2020 10:20 PM PEDIATRIC SOCIAL WORKER This exam was performed according to our departmental dose-optimization program, which includes autom ated exposure control, adjustment of the mA and/or kV according to patient size and/or use of iterati ve reconstruction technique. Electronically signed by: Kurtis Sotelo 09/10/2020 10:22 PM PEDIATRIC SOCIAL WORKER Due to temporary technical issues with the PACS/Fluency reporting system, reports are being signed by the in house radiologist without review as a courtesy to ensure prompt reporting. The interpreting r adiologist is fully responsible for the content of the report.
== END 2020-09-11 00:43 | disposition short-term general hospital (02) ==
LOC: ER 20:17
PROC: 0JQ00ZZ Repair Scalp Subcutaneous Tissue and Fascia, Open Approach (ICD-10-PCS; principal; 2020-09-11)
DX: S06.6X0A Traumatic subarachnoid hemorrhage without loss of consciousness, initial encounter (principal); W19.XXXA Unspecified fall, initial encounter; Y93.89 Activity, other specified; Y92.129 Unspecified place in nursing home as the place of occurrence of the external cause; Z20.828 Contact with and (suspected) exposure to other viral communicable diseases; Z91.012 Allergy to eggs
CPT/HCPCS: 85025; 80048; 36415; 85610; 85730; 70450; 72125; 99285; 12004; U0003